=== PATIENT | female | born 1980 | race Caucasian/White ===

== ENCOUNTER 2022-07-08 21:18 | Emergency (ER) | payer MEDICARE ==
--- NOTE | 2022-07-08 21:21 | ERPHSYRPT ---
- History of Present Illness Time Seen by Provider: 07/08/22 21:21 Historian: patient, family Exam Limitations: no limitations Physician History: This is a morbidly obese 42-year-old white female who presents to the emergency department with multiple complaints but the low back pain is the reason why she presented to the emergency room this evening. She has chronic back pain but in the last couple few days it is worsened. Patient sees Dr. Cho as her pain specialist. She has no chest pain. She has no shortness of breath. She has not fallen or suffered any acute trauma to the low back. Timing/Duration: intermittent, worse (Worse in the last 2 to 3 days), other (Present for years) Activities at Onset: none Quality: aching Pain Radiation: no radiation Severity of Pain-Max: mild (To moderate) Severity of Pain-Current: mild (To moderate) Modifying Factors: Improves With: movement, walking Associated Symptoms: denies symptoms Previous symptoms: same symptoms as today Allergies/Adverse Reactions: No Known Drug Allergies Allergy (Unverified 07/08/22 21:30) Home Medications: Gabapentin 600 mg PO TID 07/08/22 [History] Travel Risk - International Travel Have you traveled outside of the country in past 3 weeks: No - Coronavirus Screening Are you exhibiting any of the following symptoms?: No Close contact with a COVID-19 positive Pt in past 14-21 Days: No - Review of Systems Constitutional: No Symptoms Eyes: No Symptoms Ears, Nose, & Throat: No Symptoms Respiratory: No Symptoms Cardiac: No Symptoms Abdominal/Gastrointestinal: No Symptoms Genitourinary Symptoms: No Symptoms Musculoskeletal: Back Pain, No Injury Skin: No Symptoms Neurological: No Symptoms Psychological: No Symptoms Endocrine: No Symptoms Hematologic/Lymphatic: No Symptoms Immunological/Allergic: No Symptoms All Other Systems: Reviewed and Negative - Past Medical History Pertinent Past Medical History: Yes - Nursing Vital Signs Nursing Vital Signs: Initial Vital Signs Temperature 97.3 F 07/08/22 21:29 Pulse Rate 111 H 07/08/22 21:29 Respiratory Rate 18 07/08/22 21:29 Blood Pressure 131/98 07/08/22 21:29 O2 Sat by Pulse Oximetry 96 07/08/22 21:29 Pain Scale Pain Intensity 10 - Physical Exam General Appearance: no apparent distress, alert, anxiety, obese Eye Exam: PERRL/EOMI, eyes nml inspection Ears, Nose, Throat Exam: normal ENT inspection, moist mucous membranes Neck Exam: normal inspection, non-tender, supple, full range of motion Respiratory Exam: airway intact, No chest tenderness, No respiratory distress Cardiovascular Exam: tachycardia Gastrointestinal/Abdomen Exam: soft, normal bowel sounds, No tenderness Pelvic Exam: not done Rectal Exam: not done Back Exam: normal inspection, normal range of motion, muscle spasm, No CVA tenderness, No vertebral tenderness (Lumbar level) Extremity Exam: normal inspection, normal range of motion, pelvis stable Neurologic Exam: alert, oriented x 3, cooperative, pleater II-XII nml as tested, normal mood/affect, nml cerebellar function, nml station & gait, sensation nml Skin Exam: normal color, warm, dry Lymphatic Exam: No adenopathy SpO2 Interpretation: normal O2 Delivery: Room Air - Course Nursing assessment & vital signs reviewed: Yes Ordered Tests: Active Orders 24 hr Category Date Time Status LUMBAR LIMITED (2 OR 3 VIEWS) Stat Exams 07/08/22 21:54 Taken CULTURE,URINE Stat Lab 07/08/22 21:57 Received UA W/RFX UR CULTURE Stat Lab 07/08/22 21:57 Completed Medication Summary Generic Name Dose Route Start Last Admin Trade Name Freq PRN Reason Stop Dose Admin Methylprednisolone Sodium 0 mg 07/08/22 22:49 Succinate 125 mg/ Sterile IM 07/08/22 22:50 Water 2 ml STAT ONE Discontinued Medications Generic Name Dose Route Start Last Admin Trade Name Freq PRN Reason Stop Dose Admin Oxycodone/Acetaminophen 2 tab 07/08/22 22:48 Oxycodone Hcl/Apap 5 Mg/325 Mg Tablet PO 07/08/22 22:49 SENT HOME W/ PATIENT STA Lab/Rad Data: Laboratory Results 07/08/22 Range/Units 21:57 Urine Color Yellow (Yellow) Urine Appearance Clear (Clear) Urine pH 6.0 (4.6-8.0) Ur Specific [place] >=1.030 A (1.005-1.030) Urine Protein Negative (Negative) Urine Glucose (UA) >=1000 A (Negative) mg/dL Urine Ketones Negative (Negative) Urine Blood Negative (Negative) Urine Nitrite Negative (Negative) Urine Bilirubin Negative (Negative) Urine Urobilinogen 0.2 (0.2) mg/dL Ur Leukocyte Esterase Negative (Negative) U Hyaline Cast (Auto) NONE SEEN (0-2) /LPF Urine Microscopic RBC 0-2 (0-5) /HPF Urine Microscopic WBC 11-20 A (0-5) /HPF Ur Epithelial Cells Moderate A (None Seen) /HPF Urine Bacteria Few A (None Seen) /HPF Urine Culture Reflexed YES (NO) - Progress Progress: unchanged, pain not gone completely Progress Note: 07/08/22 22:42 The lumbar spine x-ray was interpreted by me. There is no evidence of any acute fracture or subluxation. The patient's medical issue is 1 of low complexity. The level of complexity in the work-up performed is based on review of the patient's past medical history. Patient's primary complaint is chronic but there is acute exacerbation of her lower back pain. We also took into account reviewing the patient's medication list, the drug allergy list and history of present illness. We also took into account the findings on physical examination. Lumbar spine x-ray was performed. No laboratory studies are necessary. We did do a urinalysis as well. It appears as the urinalysis shows bacteria present as well as white cells. However I think this is a contaminated specimen there is a moderate amount of epithelial cells. The nitrite and leukocyte esterase are negative. A culture was sent and we will wait for the culture results to determine if the patient requires antibiotic therapy. We will treat her back pain at this time. Counseled pt/family regarding: lab results, diagnosis, rad results Medical Desision Making - Independent Historian Additional History obtained from: Mother - Diagnostic Testing Diagnostic test were ordered, analyzed, and reviewed by me: Yes Radiological Interpretation: Interpreted by me - Risk of complications The pt has a mod risk of morbidity or mortality based on: Need for prescription drug management - Departure Departure Disposition: Home Clinical Impression: Acute exacerbation of chronic low back pain Condition: Stable Critical Care Time: No Referrals: VESTA CHO MD [CONSULTING PHYSICIAN] - Follow up/PCP as directed Additional Instructions: Take your medication as prescribed. Call your primary care physician tomorrow, 07/09/2022 to make arrangements to be evaluated in the next 3 to 5 days. Monitor your blood sugar closely when taking the short-term steroids. Prescriptions: Prednisone 10 mg [Deltasone 10 mg] 10 mg PO TID #12 tablet
[2022-07-08 22:33] LABS: Appearance Clear (Clear); Bacteria Few /HPF (None Seen); Bilirubin Negative (Negative); Blood Negative (Negative); Epithelial Cells Moderate /HPF (None Seen); Glucose, Urine >=1000 mg/dL (Negative); Hyaline Casts NONE SEEN /LPF (0-2); Ketones Negative (Negative); Leukocyte Esterase Negative (Negative); Nitrite Negative (Negative); Protein,Urine Dip Negative (Negative); RBC 0-2 /HPF (0-5); Specific Gravity >=1.030 (1.005-1.030); Urobilinogen 0.2 mg/dL (0.2)
[2022-07-08 22:34] LABS: ADD URINE CULTURE? YES (NO)
[2022-07-08] MEDS ORDERED: PERCOCET TABLET 5/325MG PO STA (22:48)
[2022-07-08] MEDS ORDERED: solu-MEDROL 125 MG, Sterile H2O 10 ml 2 ML IM ONE ×2 (22:49)
[2022-07-08] MEDS ORDERED: solu-MEDROL ONE (23:21)
[2022-07-08] MEDS ORDERED: Sterile H2O 10 ml IJ ONE (23:21)
[2022-07-08] MEDS ORDERED: PERCOCET TABLET 5/325MG ONE (23:21)
[2022-07-08 23:33] VITALS: BP 102/85; PULSE 100; O2SAT 95
--- NOTE | 2022-07-09 08:39 | XRAY ---
Indication: Pain. No known injury. Comparison: None 3 view lumbar spine demonstrates 5 lumbar segments in normal alignment with minimal/mild multilevel thoracolumbar endplate spurring, minimal L4-S1 disc space narrowing, cholecystectomy clips, and partially visualized right intra-abdominal catheter. No other bony, articular, or soft tissue abnormalities.
== END 2022-07-08 23:39 | disposition home or self-care (01) ==
LOC: ED 21:18
DX: G89.29 Other chronic pain (principal); M54.50 Low back pain, unspecified; Z79.52 Long term (current) use of systemic steroids; Z79.899 Other long term (current) drug therapy
CPT/HCPCS: 72100; 81001; 87086; 96372; 99283; J2930; A9270-GY

== ENCOUNTER 2022-09-23 20:55 | Emergency (ER) | payer MEDICARE ==
--- NOTE | 2022-09-23 21:03 | ERPHSYRPT ---
- History of Present Illness Time Seen by Provider: 09/23/22 21:03 Source: patient Exam Limitations: no limitations Physician History: This is a morbidly obese 42-year-old white female patient who has history of chronic back pain and sees a pain specialist, Dr. Hardwick for this. She is on gabapentin. She has noticed increasing pain and swelling in her right jaw and right neck over the last month. Today, the swelling became more prominent as did the pain. Patient is a dentulous. She has had all her teeth pulled. She has had no radiation treatment to this area. She has never had pain like this before. Patient denies chest pain. Patient denies shortness of breath. Timing/Duration: gradual onset Severity: moderate ENT Location: mouth (Right jaw and right neck) Prearrival Treatment: no prearrival treatment Modifying Factors: Improves With: other (Right jaw and right neck hurt to open up her mouth wide) Associated Symptoms: facial pain/swelling (Right jaw and right neck), other (Right jaw), No swollen glands, No sore throat, No tooth pain, No voice change Allergies/Adverse Reactions: No Known Drug Allergies Allergy (Verified 09/23/22 21:23) Home Medications: ALPRAZolam 1 MG [Xanax 1 mg] 1 mg PO DAILY 09/23/22 [History] Buspirone HCl 15 mg PO BID 09/23/22 [History] Escitalopram Oxalate [Lexapro] 10 mg PO DAILY 09/23/22 [History] Quetiapine Fumarate 100 mg [Seroquel 100 MG] 150 mg PO HS 09/23/22 [History] Trazodone HCl 100 mg PO HS 09/23/22 [History] Hx Tetanus, Diphtheria Vaccination/Date Given: Yes Hx Influenza Vaccination/Date Given: Yes Hx Pneumococcal Vaccination/Date Given: Yes Travel Risk - International Travel Have you traveled outside of the country in past 3 weeks: No - Coronavirus Screening Are you exhibiting any of the following symptoms?: No Close contact with a COVID-19 positive Pt in past 14-21 Days: No - Vaccine Status Have you recieved a Covid-19 vaccination: No - Review of Systems Constitutional: No Symptoms Eyes: No Symptoms Ears, Nose, & Throat: Other (Difficult for patient to open up her mouth wide because of the pain in her jaw on the right side) Respiratory: No Symptoms Cardiac: No Symptoms Abdominal/Gastrointestinal: No Symptoms Genitourinary Symptoms: No Symptoms Musculoskeletal: Joint Pain (Right jaw pain) Skin: No Symptoms Neurological: No Symptoms Psychological: No Symptoms Endocrine: No Symptoms Hematologic/Lymphatic: No Symptoms Immunological/Allergic: No Symptoms All Other Systems: Reviewed and Negative - Past Medical History Pertinent Past Medical History: Yes Neurological History: Seizures, Stroke Respiratory History: Asthma, COPD Endocrine Medical History: Diabetes Type II GI Medical History: GERD Psycho-Social History: Depression Female Reproductive Disorders: Endometriosis, Menstrual Problems - Past Surgical History Past Surgical History: Yes Neuro Surgical History: Brain Shunt Gastrointestinal: Appendectomy, Cholecystectomy Female Surgical History: Hysterectomy Other Surgical History: correction of toes on bilateral feet - Social History Smoking Status: Current every day smoker Exposure to second hand smoke: Yes Drug Use: none Patient Lives Alone: No - Nursing Vital Signs Nursing Vital Signs: Initial Vital Signs Temperature 97.2 F 09/23/22 21:06 Pulse Rate 98 H 09/23/22 21:06 Respiratory Rate 18 09/23/22 21:06 Blood Pressure 142/110 09/23/22 21:06 O2 Sat by Pulse Oximetry 97 09/23/22 21:06 Pain Scale Pain Intensity 10 - Physical Exam General Appearance: no apparent distress, alert, anxiety Eye Exam: bilateral eye: normal inspection, PERRL, EOMI Ear Exam: bilateral ear: auricle normal, canal normal, TM normal Nasal Exam: normal inspection Throat Exam: mandibular swelling (Right side with pain upon opening of the mouth), moist mucus membranes, No dental tenderness, No voice changes Neck Exam: supple, full range of motion, trachea midline, tender lateral (Right side soft tissue neck with? Swelling present no crepitance) Cardiovascular/Respiratory Exam: chest non-tender, no respiratory distress Abdominal Exam: non-tender Neurologic Exam: alert, oriented x 3, cooperative, oil speculator II-XII nml as tested, normal mood/affect, nml cerebellar function, nml station & gait, sensation nml Skin Exam: normal color, warm, dry SpO2 Interpretation: normal O2 Delivery: Room Air - Course Nursing assessment & vital signs reviewed: Yes Ordered Tests: Active Orders 24 hr Category Date Time Status IV Insertion STAT Care 09/23/22 21:29 Active FACIAL BONES WO CONTRAST [CT] Stat Exams 09/23/22 21:25 Ordered NECK WO CONTRAST [CT] Stat Exams 09/23/22 21:25 Ordered CBC W DIFF Stat Lab 09/23/22 21:40 Completed CMP Stat Lab 09/23/22 21:40 Completed Lab/Rad Data: Laboratory Result Diagrams 09/23/22 21:40 09/23/22 21:40 Laboratory Results 09/23/22 09/23/22 Range/Units 21:40 21:40 WBC 9.5 (4.0-10.5) x10^3/uL RBC 4.40 (4.1-5.4) x10^6/uL Hgb 13.1 (12.0-16.0) g/dL Hct 39.1 (35-47) % MCV 88.9 (78-100) fL MCH 29.8 (26-32) pg MCHC 33.5 (32-36) g/dL RDW 12.4 (11.5-14.0) % Plt Count 229 (150-450) x10^3/uL MPV 9.6 (7.5-11.0) fL Gran % 57.7 (36.0-66.0) % Immature Gran % (Auto) 0.5 H (0.00-0.4) % Nucleat RBC Rel Count 0.0 (0.00-0.1) % Eos # (Auto) 0.36 (0-0.5) x10^3/uL Immature Gran # (Auto) 0.05 H (0.00-0.03) x10^3u/L Absolute Lymphs (auto) 3.13 (1.0-4.6) x10^3/uL Absolute Monos (auto) 0.43 (0.0-1.3) x10^3/uL Absolute Nucleated RBC 0.00 (0.00-0.01) x10^3u/L Lymphocytes % 33.1 (24.0-44.0) % Monocytes % 4.5 (0.0-12.0) % Eosinophils % 3.8 (0.00-5.0) % Basophils % 0.4 (0.0-0.4) % Absolute Granulocytes 5.45 (1.4-6.9) x10^3/uL Basophils # 0.04 (0-0.4) x10^3/uL Sodium 136 L (137-145) mmol/L Potassium 4.0 (3.5-5.1) mmol/L Chloride 96 L (98-107) mmol/L Carbon Dioxide 30 (22-30) mmol/L Anion Gap 13.2 (5-15) MEQ/L BUN 13 (7-17) mg/dL Creatinine 0.82 (0.52-1.04) mg/dL Estimated GFR > 60.0 ML/MIN Glucose 354 H (74-106) mg/dL Calcium 8.3 L (8.4-10.2) mg/dL Total Bilirubin 0.50 (0.2-1.3) mg/dL AST 27 (14-36) U/L ALT 30 (0-35) U/L Alkaline Phosphatase 150 H (38-126) U/L Serum Total Protein 7.5 (6.3-8.2) g/dL Albumin 4.0 (3.5-5.0) g/dL - Progress Progress: improved, pain not gone completely Progress Note: 09/23/22 22:09 ct scan of the face and soft tissue of the neck both show no acute, emergent abnormality. I reviewed the impression of the radiologist interpretation. This patient's medical issue is 1 of moderate complexity. Level complexity in the work-up performed is based on review of the patient's past medical history, review of the patient's medication list, reviewed the patient's drug allergy list, history of present illness and physical findings on examination. The work-up in this patient includes CT scan of the face and CT scan of the soft tissue of the neck. I reviewed the radiologist interpretation of the work-up. There is no acute, emergent medical issue. There is no significant findings on the lab results of the CBC, CMP. We will provide the patient with antiemetic, narcotic dose of medication and and a NSAID dose here in the emergency department followed by outpatient prescription being remotely sent for a muscle relaxant and naproxen. Counseled pt/family regarding: lab results, diagnosis, need for follow-up, rad results Medical Desision Making - Independent Historian Additional History obtained from: Family - Diagnostic Testing Diagnostic test were ordered, analyzed, and reviewed by me: Yes Radiological Interpretation: Reviewed by me, Teleradiologist Report - Risk of complications The pt has a mod risk of morbidity or mortality based on: Need for prescription drug management - Departure Departure Disposition: Home Clinical Impression: Jaw pain, Neck pain, Hyperglycemia Condition: Stable Critical Care Time: No Referrals: RANJIT NUNEZ DO [Primary Care Provider] - Follow up/PCP as directed Additional Instructions: Take your medication as prescribed. Control your blood sugar. Monitor it closely. Call your primary care provider tomorrow, 09/25/2019 3 in the morning to make arrangements for follow-up appointment for further evaluation management. Prescriptions: Naproxen 500 mg [Naprosyn 500 MG] 500 mg PO BID #10 tablet Orphenadrine Citrate 100 mg [Norflex 100 MG Tablet] 100 mg PO BID #10 tab
[2022-09-23 21:23] VITALS: TEMP 97.2; O2SAT 97
[2022-09-23 21:43] LABS: Absolute Neutrophil Ct (ANC) 5.45 x10^3/uL (1.4-6.9); BASOPHIL % 0.4 % (0.0-0.4); Basophil (Absolute #) 0.04 x10^3/uL (0-0.4); Eosinophil % 3.8 % (0.00-5.0); Eosinophil (Absolute #) 0.36 x10^3/uL (0-0.5); Hematocrit 39.1 % (35-47); Hemoglobin 13.1 g/dL (12.0-16.0); IMMATURE GRAN # 0.05 x10^3u/L (0.00-0.03); IMMATURE GRAN % 0.5 % (0.00-0.4); Lymphocyte (Absolute #) 3.13 x10^3/uL (1.0-4.6); Lymphocytes % 33.1 % (24.0-44.0); Mean Cell Volume 88.9 fL (78-100); Mean Corpuscular Hemoglobin 29.8 pg (26-32); Mean Corpuscular Hgb Concent. 33.5 g/dL (32-36); Mean Platelet Volume 9.6 fL (7.5-11.0); Monocyte (Absolute #) 0.43 x10^3/uL (0.0-1.3); Monocytes % 4.5 % (0.0-12.0); Neutrophil % 57.7 % (36.0-66.0); Platelet Count 229 x10^3/uL (150-450); Red Cell Distribution Width 12.4 % (11.5-14.0); White Blood Count 9.5 x10^3/uL (4.0-10.5)
[2022-09-23 22:06] LABS: ALKALINE PHOSPHATASE 150 U/L (38-126); ANION GAP 13.2 MEQ/L (5-15); BLOOD UREA NITROGEN 13 mg/dL (7-17); CHLORIDE 96 mmol/L (98-107); Calcium 8.3 mg/dL (8.4-10.2); Carbon Dioxide 30 mmol/L (22-30); Creatinine 1 0.82 mg/dL (0.52-1.04); EST GLOMERULAR FILTRATION RATE > 60.0 ML/MIN; Glucose 354 mg/dL (74-106); SGOT/AST 27 U/L (14-36); SGPT/ALT 30 U/L (0-35); SODIUM 136 mmol/L (137-145); Total Protein 7.5 g/dL (6.3-8.2)
[2022-09-23] MEDS ORDERED: Hydromorphone 1 mg/ml Injection IV ONE (22:14)
[2022-09-23] MEDS ORDERED: TORAdol 30 mg Injection IV ONE (22:14)
[2022-09-23] MEDS ORDERED: Zofran 4 MG/2 ML VIAL IV ONE (22:14)
[2022-09-23] MEDS ORDERED: Hydromorphone 1 mg/ml Injection ONE (22:30)
[2022-09-23] MEDS ORDERED: TORAdol 30 mg Injection ONE (22:30)
[2022-09-23] MEDS ORDERED: Zofran 4 MG/2 ML VIAL ONE (22:30)
[2022-09-23 22:51] VITALS: BP 105/76; PULSE 84; RESP 16
--- NOTE | 2022-09-24 08:45 | XRAY ---
Indication: Right jaw pain and swelling. Multiple contiguous axial images obtained through the facial bones. Sagittal and coronal reformatted images obtained. Cutaneous BB placed over region of interest. Comparison: None Patient is edentulous. Cutaneous BB is seen right mandibular area. No underlying solid/cystic soft tissue mass. No acute fracture, suspicious bony lesions, or radiopaque foreign body. Orbits including roof, [place], and floors intact. Incidental mild C5-C6 degenerative changes. TMJ bilaterally symmetric. Paranasal sinuses and nasal passages are clear. There has been bilateral maxillary sinus antrectomy and right middle turbinectomy. A few scattered subcentimeter cervical lymph nodes bilaterally, none pathologically enlarged. Incompletely visualized right ventriculoperitoneal catheter. Remaining visualized noncontrasted soft tissues including base of brain are unremarkable. Impression: C5-C6 degenerative changes. Remaining CT facial bones without contrast exam is negative.
--- NOTE | 2022-09-24 08:47 | XRAY ---
Indication: Right jaw pain and swelling. Multiple contiguous axial images obtained through the neck without contrast. Sagittal and coronal reformatted images obtained. Cutaneous BB placed over region of interest. Comparison: None Patient is edentulous. Cutaneous BB is seen right mandibular area. No underlying solid/cystic soft tissue mass. Scattered subcentimeter cervical lymph nodes bilaterally, none pathologically enlarged. Parotid and submandibular glands are bilaterally symmetric. Noncontrasted thyroid gland unremarkable. Major arteries and veins are normal in course and caliber. Supra and infraglottic airway are widely patent. Normal epiglottis. Incompletely visualized right ventriculoperitoneal catheter. Visualized osseous structures intact with incidental mild C5-C6 degenerative changes. Visualized base of brain and lung apices are unremarkable. Impression: C5-C6 degenerative changes. Remaining CT neck without contrast exam is negative.
== END 2022-09-23 22:54 | disposition home or self-care (01) ==
LOC: ED 20:55
DX: R68.84 Jaw pain (principal); M54.2 Cervicalgia; E11.65 Type 2 diabetes mellitus with hyperglycemia; Z79.899 Other long term (current) drug therapy; Z28.310 Unvaccinated for COVID-19; Z72.0 Tobacco use
CPT/HCPCS: 36415; 70486; 70490; 80053; 85025; 96374; 96375; 99284; J1170; J1885; J2405

== ENCOUNTER 2022-11-13 22:57 | Emergency (ER) | payer MEDICARE ==
[2022-11-13 23:04] VITALS: TEMP 97.7
[2022-11-13] MEDS ORDERED: Pepcid 20 MG PO ONE (23:08)
[2022-11-13] MEDS ORDERED: BENADRYL 25 MG CAPSULE PO ONE (23:10)
[2022-11-13] MEDS ORDERED: DELTASONE 20 MG PO ONE (23:12)
[2022-11-13] MEDS ORDERED: Pepcid 20 MG ONE (23:14)
[2022-11-13] MEDS ORDERED: BENADRYL 25 MG CAPSULE ONE (23:14)
[2022-11-13] MEDS ORDERED: DELTASONE 20 MG ONE (23:14)
--- NOTE | 2022-11-13 23:30 | ERPHSYRPT ---
- History of Present Illness Time Seen by Provider: 11/13/22 23:10 Source: patient Exam Limitations: no limitations Patient Subjective Stated Complaint: rash which occured about 2-3 days ago Triage Nursing Assessment: pt ambulated into ER without diff, pt's mother at bedside. Pt c/o scattered rash that she's had x2-3 days. Rash is to pt's face, bilat arms, chest and back. Rash is small pink clusters with white pustule in the middle. Pt states, "the pain has gotten worse so I came in". Pt denies any itching, describes it more as pain: stinging and aching pain. Physician History: Patient is a 42-year-old female presents to our ED with a painful pruritic rash on face chest and back. Symptoms started about 2 to 3 days ago. Patient feels itchy however it hurts to scratch. No open or draining lesions. No cellulitis. No lymphangitis. Symptoms are constant. Symptoms are moderate in intensity. No specific worsening improving factors. Patient denies history of the same. No intraoral involvement. No difficulty breathing or shortness of breath. No abdominal cramping. No obvious exposures. No new products. No new clothing. Mother at bedside. They voiced no other complaints or concerns at this time. Portions of this note were created with voice recognition technology. There may be grammatical, spelling, punctuation or sound alike errors Timing/Duration: day(s) (2 to 3 days) Severity: moderate Modifying Factors: Improves With: nothing Associated Symptoms: denies symptoms Allergies/Adverse Reactions: No Known Drug Allergies Allergy (Verified 11/13/22 23:17) Home Medications: ALPRAZolam 1 MG [Xanax 1 mg] 1 mg PO DAILY 09/23/22 [History] Buspirone HCl 15 mg PO BID 09/23/22 [History] Escitalopram Oxalate [Lexapro] 10 mg PO DAILY 09/23/22 [History] Quetiapine Fumarate 100 mg [Seroquel 100 MG] 150 mg PO HS 09/23/22 [History] Trazodone HCl 100 mg PO HS 09/23/22 [History] Hx Tetanus, Diphtheria Vaccination/Date Given: No Hx Influenza Vaccination/Date Given: Yes Hx Pneumococcal Vaccination/Date Given: No Travel Risk - International Travel Have you traveled outside of the country in past 3 weeks: No - Coronavirus Screening Are you exhibiting any of the following symptoms?: No Close contact with a COVID-19 positive Pt in past 14-21 Days: No - Vaccine Status Have you recieved a Covid-19 vaccination: No - Review of Systems Constitutional: No Symptoms, No Fever, No Chills Eyes: No Symptoms Ears, Nose, & Throat: No Symptoms Respiratory: No Symptoms, No Cough, No Dyspnea Cardiac: No Symptoms, No Chest Pain, No Edema, No Syncope Abdominal/Gastrointestinal: No Symptoms, No Abdominal Pain, No Nausea, No Vomiting, No Diarrhea Genitourinary Symptoms: No Symptoms, No Dysuria Musculoskeletal: No Symptoms, No Back Pain, No Neck Pain Skin: No Symptoms, No Rash Neurological: No Symptoms, No Dizziness, No Focal Weakness, No Sensory Changes Psychological: No Symptoms Endocrine: No Symptoms Hematologic/Lymphatic: No Symptoms Immunological/Allergic: No Symptoms All Other Systems: Reviewed and Negative - Past Medical History Pertinent Past Medical History: Yes Neurological History: Seizures, Stroke Cardiac History: Congestive Heart Failure, Hypertension Respiratory History: Asthma, Bronchitis, CHF, COPD, Sleep Apnea Endocrine Medical History: Diabetes Type II Musculoskeletal History: Arthritis GI Medical History: GERD, Gallbladder Disease Psycho-Social History: Depression Female Reproductive Disorders: Endometriosis, Menstrual Problems - Past Surgical History Past Surgical History: Yes Neuro Surgical History: Brain Shunt Respiratory: No Pertinent History Gastrointestinal: Appendectomy, Cholecystectomy Genitourinary: Other Female Surgical History: Hysterectomy Other Surgical History: correction of toes on bilateral feet, bladder sling, 3 sinus surgeries, colonoscopy, hemroidectomy - Social History Smoking Status: Current every day smoker How long have you smoked: 25 yrs Exposure to second hand smoke: No Drug Use: none Patient Lives Alone: No - Female History Hx Now: No - Nursing Vital Signs Nursing Vital Signs: Initial Vital Signs Temperature 97.7 F 11/13/22 23:01 Pulse Rate 104 H 11/13/22 23:01 Respiratory Rate 22 11/13/22 23:01 Blood Pressure 135/89 11/13/22 23:01 O2 Sat by Pulse Oximetry 97 11/13/22 23:01 Pain Scale Pain Intensity 9 - Physical Exam General Appearance: no apparent distress, alert Eye Exam: PERRL/EOMI, eyes nml inspection Ears, Nose, Throat Exam: normal ENT inspection, TMs normal, pharynx normal, moist mucous membranes Neck Exam: normal inspection, non-tender, supple, full range of motion Respiratory Exam: normal breath sounds, lungs clear, No respiratory distress Cardiovascular Exam: regular rate/rhythm, normal heart sounds, normal peripheral pulses Gastrointestinal/Abdomen Exam: soft, normal bowel sounds, No tenderness, No mass Back Exam: normal inspection, normal range of motion, No CVA tenderness, No vertebral tenderness Extremity Exam: normal inspection, normal range of motion, pelvis stable Neurologic Exam: alert, oriented x 3, cooperative, normal mood/affect, nml cerebellar function, nml station & gait, sensation nml, No motor deficits Skin Exam: normal color, warm, dry, other (Papular skin lesions associated with painful pruritus. No open or draining lesions. No superimposed cellulitis. Skin intact. All extremities neurovascular intact distally. Compartments are soft cap refill less than 2 seconds.), No rash Lymphatic Exam: No adenopathy SpO2 Interpretation: normal SpO2: 97 O2 Delivery: Room Air - Course Nursing assessment & vital signs reviewed: Yes Ordered Tests: Medication Summary Discontinued Medications Generic Name Dose Route Start Last Admin Trade Name Pabloq PRN Reason Stop Dose Admin Diphenhydramine HCl 25 mg 11/13/22 23:10 11/13/22 23:16 Diphenhydramine Hcl 25 Mg Capsule PO 11/13/22 23:11 25 mg STAT ONE Administration Diphenhydramine HCl Confirm 11/13/22 23:14 Diphenhydramine Hcl 25 Mg Capsule Administered 11/13/22 23:15 Dose 25 mg .ROUTE .STK-MED ONE Famotidine 20 mg 11/13/22 23:08 11/13/22 23:16 Famotidine 20 Mg Tablet PO 11/13/22 23:09 20 mg ONCE ONE Administration Famotidine Confirm 11/13/22 23:14 Famotidine 20 Mg Tablet Administered 11/13/22 23:15 Dose 20 mg .ROUTE .STK-MED ONE Prednisone 60 mg 11/13/22 23:12 11/13/22 23:16 Prednisone 20 Mg Tablet PO 11/13/22 23:13 60 mg STAT ONE Administration Prednisone Confirm 11/13/22 23:14 Prednisone 20 Mg Tablet Administered 11/13/22 23:15 Dose 60 mg .ROUTE .STK-MED ONE - Progress Progress: improved Progress Note: Patient reassessed. Symptoms improved. Patient is ready for discharge. Prescription forwarded to patient's pharmacy. Patient agrees to follow-up with her primary care doctor within 48 hours for evaluation. She voices no other complaints or concerns at this time. Portions of this note were created with voice recognition technology. There may be grammatical, spelling, punctuation or sound alike errors Complexity problem addressed as low acute uncomplicated No critical care time Complexity of data reviewed and analyzed is none. No specialized testing ordered. Diagnosis made based on history and physical exam. Risk of complication and risk of morbidity/mortality of patient management is moderate. Prescription for to the patient's pharmacy. Vital stable. Time spent to discharge patient approximately 15 minutes. Plan of care established for shared decision making. No social determinants of health present repeat follow-up. Portions of this note were created with voice recognition technology. There may be grammatical, spelling, punctuation or sound alike errors 11/13/22 23:39 Counseled pt/family regarding: diagnosis, need for follow-up - Departure Departure Disposition: Home Clinical Impression: Pruritic rash, Allergic reaction Condition: Stable Critical Care Time: No Referrals: RANJIT NUNEZ DO [Primary Care Provider] - Follow up/PCP as directed Additional Instructions: Discharge/Care Plan ISIDRA ESTRADA was seen on 11/13/22 in the Emergency Room. The patient was counseled regarding Diagnosis,Lab results, Imaging studies, need for follow up and when to return to the Emergency Room. Prescriptions given: Discharge Note I have spoken with the patient and/or caregivers. I have explained the patient's condition, diagnosis and treatment plan based on the information available to me at this time. I have answered the patient's and/or caregiver's questions and addressed any concerns. The patient and/or caregivers have as good understanding of the patient's diagnosis, condition and treatment plan as can be expected at this point. The vital signs have been stable. The patient's condition is stable and appropriate for discharge from the emergency department. The patient will pursue further outpatient evaluation with the primary care physician or other designated or consulting physician as outlined in the discharge instructions. The patient and/or caregivers are agreeable to this plan of care and follow-up instructions have been explained in detail. The patient and/or caregivers have received these instruction. The patient/and or caregivers are aware that any significant change in condition or worsening of symptoms should prompt an immediate return to this or the closest emergency department or call 911. Prescriptions: Prednisone 10 mg [Deltasone 10 mg] 40 mg PO DAILY 3 Days #12 tablet Famotidine 20 mg [Pepcid 20 MG] 20 mg PO BID 7 Days #14 tablet
[2022-11-14 00:03] VITALS: BP 103/81; PULSE 95; RESP 18; O2SAT 94
== END 2022-11-14 00:03 | disposition home or self-care (01) ==
LOC: ED 22:57
DX: T78.40XA Allergy, unspecified, initial encounter (principal); R21 Rash and other nonspecific skin eruption; I11.0 Hypertensive heart disease with heart failure; I50.9 Heart failure, unspecified; E11.9 Type 2 diabetes mellitus without complications; Z79.84 Long term (current) use of oral hypoglycemic drugs; Z79.899 Other long term (current) drug therapy; Z28.310 Unvaccinated for COVID-19; Z72.0 Tobacco use
CPT/HCPCS: 99282; A9270-GY

== ENCOUNTER 2022-11-15 19:00 | Emergency (ER) | payer MEDICARE ==
--- NOTE | 2022-11-15 19:13 | ERPHSYRPT ---
- History of Present Illness Time Seen by Provider: 11/15/22 19:13 Source: patient Exam Limitations: no limitations Physician History: This is a morbidly obese 42-year-old white female patient who has a headache and just is not feeling well overall. Blood sugar at home was elevated. Patient is on metformin as well as Levemir insulin. Her blood sugar levels were reading "high" at home. She did take "fast acting" insulin 3 hours prior to arrival. Patient has not been compliant with her meals having been eating at a festival in the last few days. Patient did not suffer any acute head injury. Patient does have a MACHINE O[employer] shunt in place. She does have a history of seizures, she has had a stroke in the past, CHF, COPD/asthma, sleep apnea and gastroesophageal reflux disease. Patient was seen in our emergency department on 11/13/2022 and was given steroid prescription to treat her rash. Patient denies chest pain. She denies shortness of breath. She has no abdominal pain. Timing/Duration: today Severity: mild (Moderate) Associated Symptoms: headaches Allergies/Adverse Reactions: No Known Drug Allergies Allergy (Verified 11/13/22 23:17) Home Medications: ALPRAZolam 1 MG [Xanax 1 mg] 1 mg PO DAILY 09/23/22 [History] Buspirone HCl 15 mg PO BID 09/23/22 [History] Escitalopram Oxalate [Lexapro] 10 mg PO DAILY 09/23/22 [History] Quetiapine Fumarate 100 mg [Seroquel 100 MG] 150 mg PO HS 09/23/22 [History] Trazodone HCl 100 mg PO HS 09/23/22 [History] Hx Tetanus, Diphtheria Vaccination/Date Given: No Hx Influenza Vaccination/Date Given: Yes Hx Pneumococcal Vaccination/Date Given: No Travel Risk - International Travel Have you traveled outside of the country in past 3 weeks: No - Coronavirus Screening Are you exhibiting any of the following symptoms?: No Close contact with a COVID-19 positive Pt in past 14-21 Days: No - Vaccine Status Have you recieved a Covid-19 vaccination: No - Review of Systems Constitutional: No Symptoms Eyes: No Symptoms Ears, Nose, & Throat: No Symptoms Respiratory: No Symptoms Cardiac: No Symptoms Genitourinary Symptoms: No Symptoms Musculoskeletal: Arthralgias, Myalgias Skin: No Symptoms Neurological: Headache Psychological: No Symptoms Endocrine: No Symptoms Hematologic/Lymphatic: No Symptoms Immunological/Allergic: No Symptoms All Other Systems: Reviewed and Negative - Past Medical History Pertinent Past Medical History: Yes Neurological History: Seizures, Stroke Cardiac History: Congestive Heart Failure, Hypertension Respiratory History: Asthma, Bronchitis, CHF, COPD, Sleep Apnea Endocrine Medical History: Diabetes Type II Musculoskeletal History: Arthritis GI Medical History: GERD, Gallbladder Disease Psycho-Social History: Depression Female Reproductive Disorders: Endometriosis, Menstrual Problems - Past Surgical History Past Surgical History: Yes Neuro Surgical History: Brain Shunt Respiratory: No Pertinent History Gastrointestinal: Appendectomy, Cholecystectomy Genitourinary: Other Female Surgical History: Hysterectomy Other Surgical History: correction of toes on bilateral feet, bladder sling, 3 sinus surgeries, colonoscopy, hemroidectomy - Social History Smoking Status: Current every day smoker How long have you smoked: 25 yrs Exposure to second hand smoke: No Drug Use: none Patient Lives Alone: No - Nursing Vital Signs Nursing Vital Signs: Initial Vital Signs Blood Pressure 148/105 11/15/22 19:19 Pain Scale Pain Intensity 10 - Physical Exam General Appearance: no apparent distress, alert, anxiety, obese Eye Exam: PERRL/EOMI, eyes nml inspection Ears, Nose, Throat Exam: normal ENT inspection, moist mucous membranes Neck Exam: normal inspection, non-tender, supple, full range of motion Respiratory Exam: normal breath sounds, lungs clear, airway intact, No chest tenderness, No respiratory distress Cardiovascular Exam: regular rate/rhythm, normal heart sounds, normal peripheral pulses Gastrointestinal/Abdomen Exam: soft, normal bowel sounds, tenderness Pelvic Exam: not done Rectal Exam: not done Back Exam: normal inspection, normal range of motion, No CVA tenderness, No vertebral tenderness Extremity Exam: normal inspection, normal range of motion, pelvis stable Neurologic Exam: alert, oriented x 3, cooperative, 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 tested, normal mood/affect, nml cerebellar function, nml station & gait, sensation nml Skin Exam: normal color, warm, dry Lymphatic Exam: No adenopathy SpO2 Interpretation: normal O2 Delivery: Room Air - Course Nursing assessment & vital signs reviewed: Yes Ordered Tests: Active Orders 24 hr Category Date Time Status EKG-ER Only STAT Care 11/15/22 19:31 Active IV Insertion STAT Care 11/15/22 19:31 Active Pulse Oximetry (ED) STAT Care 11/15/22 19:31 Active HEAD WITHOUT CONTRAST [CT] Stat Exams 11/15/22 19:32 Taken CBC W DIFF Stat Lab 11/15/22 19:34 Completed CMP Stat Lab 11/15/22 19:34 Completed ETHYL ALCOHOL Stat Lab 11/15/22 19:34 Completed Lactic Acid Urgent Lab 11/15/22 20:02 Completed MAGNESIUM Stat Lab 11/15/22 19:34 Completed POCT GLUCOSE Stat Lab 11/15/22 19:18 Completed UA W/RFX UR CULTURE Stat Lab 11/15/22 19:34 Completed Medication Summary Generic Name Dose Route Start Last Admin Trade Name Freq PRN Reason Stop Dose Admin Sodium Chloride 1,000 mls @ 999 mls/hr 11/15/22 20:35 11/15/22 20:55 Sodium Chloride 0.9% 1000 Ml IV 11/15/22 21:35 999 mls/hr .Q1H1M STA Administration Discontinued Medications Generic Name Dose Route Start Last Admin Trade Name Freq PRN Reason Stop Dose Admin Hydrocodone Bitart/Acetaminophen 1 tab 11/15/22 20:38 11/15/22 20:43 Hydrocodone/Apap 5/325 1 Tab Tablet PO 11/15/22 20:39 1 tab STAT ONE Administration Hydrocodone Bitart/Acetaminophen Confirm 11/15/22 20:42 Hydrocodone/Apap 5/325 1 Tab Tablet Administered 11/15/22 20:43 Dose 1 tab .ROUTE .STK-MED ONE Sodium Chloride 1,000 mls @ 999 mls/hr 11/15/22 19:31 11/15/22 20:22 Sodium Chloride 0.9% 1000 Ml IV 11/15/22 20:31 999 mls/hr .Q1H1M STA Administration Sodium Chloride Confirm 11/15/22 20:10 Sodium Chloride 0.9% 1000 Ml Administered 11/15/22 20:11 Dose 1,000 mls @ ud .ROUTE .STK-MED ONE Sodium Chloride Confirm 11/15/22 20:55 Sodium Chloride 0.9% 1000 Ml Administered 11/15/22 20:56 Dose 1,000 mls @ ud .ROUTE .STK-MED ONE Insulin Human Regular 15 unit 11/15/22 19:32 11/15/22 20:23 Insulin Regular, Human 1 Unit IV 11/15/22 19:33 15 unit STAT ONE Administration Insulin Human Regular Confirm 11/15/22 20:09 Insulin Regular, Human 1 Unit Administered 11/15/22 20:10 Dose 15 unit .ROUTE .STK-MED ONE Ondansetron HCl 4 mg 11/15/22 19:31 11/15/22 20:23 Ondansetron Hcl 4 Mg/2 Ml Vial IV 11/15/22 19:32 4 mg STAT ONE Administration Ondansetron HCl Confirm 11/15/22 20:09 Ondansetron Hcl 4 Mg/2 Ml Vial Administered 11/15/22 20:10 Dose 4 mg .ROUTE .STK-MED ONE Lab/Rad Data: Laboratory Result Diagrams 11/15/22 19:34 11/15/22 19:34 Laboratory Results 11/15/22 11/15/22 11/15/22 Range/Units 20:02 19:34 19:34 WBC 12.9 H (4.0-10.5) x10^3/uL RBC 4.08 L (4.1-5.4) x10^6/uL Hgb 12.0 (12.0-16.0) g/dL Hct 36.1 (35-47) % MCV 88.5 (78-100) fL MCH 29.4 (26-32) pg MCHC 33.2 (32-36) g/dL RDW 12.7 (11.5-14.0) % Plt Count 218 (150-450) x10^3/uL MPV 9.9 (7.5-11.0) fL Gran % 80.7 H (36.0-66.0) % Immature Gran % (Auto) 1.4 H (0.00-0.4) % Nucleat RBC Rel Count 0.0 (0.00-0.1) % Eos # (Auto) 0.01 (0-0.5) x10^3/uL Immature Gran # (Auto) 0.18 H (0.00-0.03) x10^3u/L Absolute Lymphs (auto) 1.96 (1.0-4.6) x10^3/uL Absolute Monos (auto) 0.31 (0.0-1.3) x10^3/uL Absolute Nucleated RBC 0.00 (0.00-0.01) x10^3u/L Lymphocytes % 15.2 L (24.0-44.0) % Monocytes % 2.4 (0.0-12.0) % Eosinophils % 0.1 (0.00-5.0) % Basophils % 0.2 (0.0-0.4) % Absolute Granulocytes 10.41 H (1.4-6.9) x10^3/uL Basophils # 0.03 (0-0.4) x10^3/uL Sodium 131 L (137-145) mmol/L Potassium 4.3 (3.5-5.1) mmol/L Chloride 95 L (98-107) mmol/L Carbon Dioxide 27 (22-30) mmol/L Anion Gap 14.3 (5-15) MEQ/L BUN 23 H (7-17) mg/dL Creatinine 0.79 (0.52-1.04) mg/dL Estimated GFR > 60.0 ML/MIN Glucose 499 H (74-106) mg/dL POC Glucometer (50 to 500) mg/dL Lactic Acid 2.1 H (0.4-2.0) Calcium 9.3 (8.4-10.2) mg/dL Magnesium 1.7 (1.6-2.3) mg/dL Total Bilirubin 0.40 (0.2-1.3) mg/dL AST 19 (14-36) U/L ALT 26 (0-35) U/L Alkaline Phosphatase 167 H (38-126) U/L Serum Total Protein 7.3 (6.3-8.2) g/dL Albumin 4.1 (3.5-5.0) g/dL Urine Color (Yellow) Urine Appearance (Clear) Urine pH (4.6-8.0) Ur Specific [place] (1.005-1.030) Urine Protein (Negative) Urine Glucose (UA) (Negative) mg/dL Urine Ketones (Negative) Urine Blood (Negative) Urine Nitrite (Negative) Urine Bilirubin (Negative) Urine Urobilinogen (0.2) mg/dL Ur Leukocyte Esterase (Negative) U Hyaline Cast (Auto) (0-2) /LPF Urine Microscopic RBC (0-5) /HPF Urine Microscopic WBC (0-5) /HPF Ur Epithelial Cells (None Seen) /HPF Urine Bacteria (None Seen) /HPF Urine Culture Reflexed (NO) Ethyl Alcohol < 10 (0-10) mg/dL 11/15/22 11/15/22 Range/Units 19:34 19:18 WBC (4.0-10.5) x10^3/uL RBC (4.1-5.4) x10^6/uL Hgb (12.0-16.0) g/dL Hct (35-47) % MCV (78-100) fL MCH (26-32) pg MCHC (32-36) g/dL RDW (11.5-14.0) % Plt Count (150-450) x10^3/uL MPV (7.5-11.0) fL Gran % (36.0-66.0) % Immature Gran % (Auto) (0.00-0.4) % Nucleat RBC Rel Count (0.00-0.1) % Eos # (Auto) (0-0.5) x10^3/uL Immature Gran # (Auto) (0.00-0.03) x10^3u/L Absolute Lymphs (auto) (1.0-4.6) x10^3/uL Absolute Monos (auto) (0.0-1.3) x10^3/uL Absolute Nucleated RBC (0.00-0.01) x10^3u/L Lymphocytes % (24.0-44.0) % Monocytes % (0.0-12.0) % Eosinophils % (0.00-5.0) % Basophils % (0.0-0.4) % Absolute Granulocytes (1.4-6.9) x10^3/uL Basophils # (0-0.4) x10^3/uL Sodium (137-145) mmol/L Potassium (3.5-5.1) mmol/L Chloride (98-107) mmol/L Carbon Dioxide (22-30) mmol/L Anion Gap (5-15) MEQ/L BUN (7-17) mg/dL Creatinine (0.52-1.04) mg/dL Estimated GFR ML/MIN Glucose (74-106) mg/dL POC Glucometer 539 H* (50 to 500) mg/dL Lactic Acid (0.4-2.0) Calcium (8.4-10.2) mg/dL Magnesium (1.6-2.3) mg/dL Total Bilirubin (0.2-1.3) mg/dL AST (14-36) U/L ALT (0-35) U/L Alkaline Phosphatase (38-126) U/L Serum Total Protein (6.3-8.2) g/dL Albumin (3.5-5.0) g/dL Urine Color Yellow (Yellow) Urine Appearance Clear (Clear) Urine pH 5.5 (4.6-8.0) Ur Specific [place] 1.020 (1.005-1.030) Urine Protein Negative (Negative) Urine Glucose (UA) >=1000 A (Negative) mg/dL Urine Ketones Negative (Negative) Urine Blood Negative (Negative) Urine Nitrite Negative (Negative) Urine Bilirubin Negative (Negative) Urine Urobilinogen 0.2 (0.2) mg/dL Ur Leukocyte Esterase Negative (Negative) U Hyaline Cast (Auto) NONE SEEN (0-2) /LPF Urine Microscopic RBC 0-2 (0-5) /HPF Urine Microscopic WBC 0-2 (0-5) /HPF Ur Epithelial Cells Rare (None Seen) /HPF Urine Bacteria None Seen (None Seen) /HPF Urine Culture Reflexed NO (NO) Ethyl Alcohol (0-10) mg/dL - Progress Progress: improved Progress Note: 11/15/22 19:30 This patient's medical issue is 1 of moderate complexity the level of complexity and work-up performed is based on review of the patient's past medical history, review of the patient's medication list, review the patient's drug allergy lis t, history present illness and physical findings on examination. Work-up includes placement of intravenous line, infusion normal saline solution, infusion of regular insulin, CBC, CMP, urinalysis. 11/15/22 21:17 CT scan of the head without contrast shows right [employer] shunt in the right lateral ventricle. 2 remote lacunar infarct left basal ganglia. No acute findings. There were no comparison films available. This study was interpreted by the radiologist and I reviewed the impression Counseled pt/family regarding: lab results, diagnosis Medical Desision Making - Independent Historian Additional History obtained from: Mother - Diagnostic Testing Diagnostic test were ordered, analyzed, and reviewed by me: Yes Radiological Interpretation: Reviewed by me, Teleradiologist Report - Risk of complications Low Risk: Low risk of morbidity from additional dx testing or treatment - Departure Departure Disposition: Home Clinical Impression: Hyperglycemia due to diabetes mellitus, Headache Condition: Stable Critical Care Time: No Referrals: RANJIT NUNEZ DO [Primary Care Provider] - Follow up/PCP as directed Additional Instructions: Eat a diabetic diet. Monitor your blood sugar closely. Stop your steroid use. Take your medications as prescribed. Follow-up with your primary care provider on 11/18/2022, for further evaluation and management.
[2022-11-15] MEDS ORDERED: Sodium Chloride 0.9% 1000 ML 1,000 ML IV STA ×2 (19:31→20:35)
[2022-11-15] MEDS ORDERED: Zofran 4 MG/2 ML VIAL IV ONE (19:31)
[2022-11-15] MEDS ORDERED: HUMULIN R IV ONE (19:32)
[2022-11-15 19:33] VITALS: TEMP 96.3
[2022-11-15 20:03] LABS: Absolute Neutrophil Ct (ANC) 10.41 x10^3/uL (1.4-6.9); BASOPHIL % 0.2 % (0.0-0.4); Basophil (Absolute #) 0.03 x10^3/uL (0-0.4); Eosinophil % 0.1 % (0.00-5.0); Eosinophil (Absolute #) 0.01 x10^3/uL (0-0.5); Hematocrit 36.1 % (35-47); IMMATURE GRAN # 0.18 x10^3u/L (0.00-0.03); IMMATURE GRAN % 1.4 % (0.00-0.4); Lymphocyte (Absolute #) 1.96 x10^3/uL (1.0-4.6); Lymphocytes % 15.2 % (24.0-44.0); Mean Cell Volume 88.5 fL (78-100); Mean Corpuscular Hemoglobin 29.4 pg (26-32); Mean Corpuscular Hgb Concent. 33.2 g/dL (32-36); Mean Platelet Volume 9.9 fL (7.5-11.0); Monocyte (Absolute #) 0.31 x10^3/uL (0.0-1.3); Monocytes % 2.4 % (0.0-12.0); Neutrophil % 80.7 % (36.0-66.0); Platelet Count 218 x10^3/uL (150-450); Red Blood Count 4.08 x10^6/uL (4.1-5.4); Red Cell Distribution Width 12.7 % (11.5-14.0); White Blood Count 12.9 x10^3/uL (4.0-10.5)
[2022-11-15] MEDS ORDERED: Zofran 4 MG/2 ML VIAL ONE (20:09)
[2022-11-15] MEDS ORDERED: HUMULIN R ONE (20:09)
[2022-11-15] MEDS ORDERED: Sodium Chloride 0.9% 1000 ML 1,000 ML ONE ×2 (20:10→20:55)
[2022-11-15 20:13] LABS: Appearance Clear (Clear); Bacteria None Seen /HPF (None Seen); Bilirubin Negative (Negative); Blood Negative (Negative); Epithelial Cells Rare /HPF (None Seen); Glucose, Urine >=1000 mg/dL (Negative); Hyaline Casts NONE SEEN /LPF (0-2); Ketones Negative (Negative); Leukocyte Esterase Negative (Negative); Nitrite Negative (Negative); Ph 5.5 (4.6-8.0); Protein,Urine Dip Negative (Negative); RBC 0-2 /HPF (0-5); Urobilinogen 0.2 mg/dL (0.2); WBC 0-2 /HPF (0-5)
[2022-11-15 20:21] LABS: ADD URINE CULTURE? NO (NO)
[2022-11-15 20:28] LABS: ALBUMIN 4.1 g/dL (3.5-5.0); ALKALINE PHOSPHATASE 167 U/L (38-126); ANION GAP 14.3 MEQ/L (5-15); BLOOD UREA NITROGEN 23 mg/dL (7-17); CHLORIDE 95 mmol/L (98-107); Calcium 9.3 mg/dL (8.4-10.2); Carbon Dioxide 27 mmol/L (22-30); Creatinine 1 0.79 mg/dL (0.52-1.04); EST GLOMERULAR FILTRATION RATE > 60.0 ML/MIN; ETHYL ALCOHOL < 10 mg/dL (0-10); MAGNESIUM 1.7 mg/dL (1.6-2.3); Potassium 4.3 mmol/L (3.5-5.1); SGOT/AST 19 U/L (14-36); SGPT/ALT 26 U/L (0-35); SODIUM 131 mmol/L (137-145); Total Protein 7.3 g/dL (6.3-8.2)
[2022-11-15 20:33] LABS: Glucose 499 mg/dL (74-106)
[2022-11-15] MEDS ORDERED: NORCO 5/325 MG PO ONE (20:38)
[2022-11-15] MEDS ORDERED: NORCO 5/325 MG ONE (20:42)
[2022-11-15 22:20] VITALS: BP 117/78; PULSE 76; RESP 16; O2SAT 96
--- NOTE | 2022-11-16 05:56 | XRAY ---
Indication: Headache Multiple contiguous axial images obtained through the head without contrast. Comparison: None Right ventricular shunt catheter in situ with tip in the right mid lateral ventricle. No acute intracranial hemorrhage, abnormal extra-axial fluid collection, or mass effect. Fourth ventricle is midline without hydrocephalus. Howell-white matter differentiation preserved. Bony calvarium intact. Visualized paranasal sinuses and mastoid air cells are clear. Impression: No acute intracranial abnormalities.
== END 2022-11-15 22:18 | disposition home or self-care (01) ==
LOC: ED 19:00
DX: E11.65 Type 2 diabetes mellitus with hyperglycemia (principal); R51.9 Headache, unspecified; I11.0 Hypertensive heart disease with heart failure; I50.9 Heart failure, unspecified; Z79.84 Long term (current) use of oral hypoglycemic drugs; Z79.4 Long term (current) use of insulin; Z79.899 Other long term (current) drug therapy; Z28.310 Unvaccinated for COVID-19; Z72.0 Tobacco use
CPT/HCPCS: 36000; 36415; 70450; 80053; 81001; 82077; 82947; 83605; 83735; 85025; 93005; 94760; 96360; 96361; 96374; 96375; 99284; J1815; J2405; A9270-GY

== ENCOUNTER 2023-01-12 16:54 | Emergency (ER) | payer MEDICARE ==
[2023-01-12 17:38] VITALS: TEMP 98.4
[2023-01-12] MEDS ORDERED: MORPHINE SULFATE 4 MG INJ IV ONE (17:44)
[2023-01-12] MEDS ORDERED: TYLENOL 325 MG PO ONE (17:44)
[2023-01-12] MEDS ORDERED: BENADRYL 50 MG/ML IV ONE (17:44)
[2023-01-12] MEDS ORDERED: Reglan 10 MG/2 ML IV ONE (17:44)
[2023-01-12] MEDS ORDERED: Sodium Chloride 0.9% 1000 ML 1,000 ML IV STA (17:44)
[2023-01-12] MEDS ORDERED: MORPHINE SULFATE 4 MG INJ ONE (18:19)
[2023-01-12] MEDS ORDERED: TYLENOL 325 MG ONE (18:19)
[2023-01-12] MEDS ORDERED: Reglan 10 MG/2 ML ONE (18:19)
[2023-01-12] MEDS ORDERED: Sodium Chloride 0.9% 1000 ML 1,000 ML ONE (18:19)
[2023-01-12] MEDS ORDERED: BENADRYL 50 MG/ML ONE (18:19)
--- NOTE | 2023-01-12 18:26 | XRAY ---
CLINICAL HISTORY:HEADACHE COMPARISON:None. TECHNIQUE:An axial non-contrast CT scan of the brain was performed from the skull base to the high parietal region. CTDI 53.92 mGy, DLP 1044.86 mGycm. FINDINGS: No acute intracranial abnormality is present. Shunt noted in place, with distal tip in the right lateral ventricle. No evidence of acute cortical infarction, hemorrhage, mass, or mass effect. No focal parenchymal abnormalities are demonstrated. Normal size and configuration of the cerebral ventricles. No abnormal extra-axial fluid collections are present. The posterior fossa is unremarkable. The skull base and calvarium are intact. The included portions of the paranasal sinuses and mastoid air cells are clear. IMPRESSION: No acute intracranial abnormality is present. Shunt noted in place, with distal tip in the right lateral ventricle. Electronically Signed by: Jan Webb MD. (01/12/2023 17:25:29 ENZYME CHEMIST)
[2023-01-12] MEDS ORDERED: TORAdol 30 mg Injection IV ONE (18:42)
--- NOTE | 2023-01-12 19:25 | ERPHSYRPT ---
- History of Present Illness Time Seen by Provider: 01/12/23 17:02 Source: patient Exam Limitations: no limitations Patient Subjective Stated Complaint: C/O Headache for 3 days. States it started on the right side of her head and it's now her entire head. Denies any injury. States its a migraine. Triage Nursing Assessment: Patient brought back to ER in a W/C. She is anxious and tearful. Alert and oriented. ROSADO WNL. Skin tone normal. NO SOB. Non- productive cough present. Accucheck per ER glucometer 224 at 5:29pm. 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 Patient reports having poorly controlled migraine and not taking anything but Tylenol/ibuprofen as needed. Patient reports moderate to severe sharp throbbing headache all over without associated nausea vomiting. No difficulty movements of neck. No fever or chills reported. Reports headache similar to her previous episodes but is not getting better with [id number] medication. Last dose of Tylenol/ibuprofen was yesterday. Patient denies any numbness tingling or weakness. No visual disturbance. No difficulty speech. Denies any known sick contact. Allergies/Adverse Reactions: No Known Drug Allergies Allergy (Verified 01/12/23 17:23) Home Medications: ALPRAZolam 1 MG [Xanax 1 mg] 1 mg PO DAILY 09/23/22 [History] Buspirone HCl 15 mg PO BID 09/23/22 [History] Escitalopram Oxalate [Lexapro] 10 mg PO DAILY 09/23/22 [History] Quetiapine Fumarate 100 mg [Seroquel 100 MG] 150 mg PO HS 09/23/22 [History] Trazodone HCl 100 mg PO HS 09/23/22 [History] Gabapentin 600 mg PO TID 11/15/22 [History] Insulin Detemir [Levemir Flexpen] 58 units SQ DAILY 11/15/22 [History] Hx Tetanus, Diphtheria Vaccination/Date Given: Yes Hx Influenza Vaccination/Date Given: No (not yet this season) Hx Pneumococcal Vaccination/Date Given: No Immunizations Up to Date: Yes Travel Risk - International Travel Have you traveled outside of the country in past 3 weeks: No - Coronavirus Screening Are you exhibiting any of the following symptoms?: Yes Symptoms: Headaches/Body Aches/Fatigue Close contact with a COVID-19 positive Pt in past 14-21 Days: No - Vaccine Status Have you recieved a Covid-19 vaccination: No - Review of Systems Constitutional: No Symptoms Eyes: No Symptoms Ears, Nose, & Throat: No Symptoms Respiratory: No Symptoms Cardiac: No Symptoms Abdominal/Gastrointestinal: No Symptoms Musculoskeletal: No Symptoms Skin: No Symptoms Neurological: Headache, No Dizziness, No Sensory Changes, No Speech Changes Psychological: Anxiety, Depression Endocrine: No Symptoms Hematologic/Lymphatic: No Symptoms - Past Medical History Pertinent Past Medical History: Yes Neurological History: Migraines, Seizures, Stroke Cardiac History: Congestive Heart Failure, Hypertension Respiratory History: Asthma, Bronchitis, CHF, COPD, Sleep Apnea Endocrine Medical History: Diabetes Type II Musculoskeletal History: Arthritis GI Medical History: GERD, Gallbladder Disease Psycho-Social History: Depression Female Reproductive Disorders: Endometriosis, Menstrual Problems - Past Surgical History Past Surgical History: Yes Neuro Surgical History: Brain Shunt Respiratory: No Pertinent History Gastrointestinal: Appendectomy, Cholecystectomy Genitourinary: Other Female Surgical History: Hysterectomy Other Surgical History: correction of toes on bilateral feet, bladder sling, 3 sinus surgeries, colonoscopy, hemroidectomy, RPG PROGRAMMER ANALYST shunt in head - Social History Smoking Status: Current every day smoker How long have you smoked: 25 yrs Exposure to second hand smoke: No Drug Use: none Patient Lives Alone: No - Female History Hx Last Menstrual Period: No longer has them Hx Now: No (hysterectomy) - Nursing Vital Signs Nursing Vital Signs: Initial Vital Signs Temperature 98.4 F 01/12/23 17:24 Pulse Rate 110 H 01/12/23 17:24 Respiratory Rate 19 01/12/23 17:24 Blood Pressure 140/104 01/12/23 17:24 O2 Sat by Pulse Oximetry 96 01/12/23 17:24 Pain Scale Pain Intensity 10 - Physical Exam General Appearance: no apparent distress, alert, anxiety Eye Exam: PERRL/EOMI Ears, Nose, Throat Exam: normal ENT inspection, TMs normal, pharynx normal, moist mucous membranes Neck Exam: normal inspection, non-tender, supple, full range of motion Respiratory Exam: normal breath sounds, lungs clear Cardiovascular Exam: regular rate/rhythm, normal heart sounds Gastrointestinal/Abdominal Exam: soft, normal bowel sounds, No tenderness Extremity Exam: normal inspection, normal range of motion Mental Status Exam: alert, oriented x 3, cooperative umbrella cutter Exam: normal hearing, normal speech, PERRL Coordination/Gait Exam: normal finger to nose, normal cerebellar function Motor/Sensory Exam: no motor deficit, no sensory deficit, no pronator drift, negative Babinski's sign DTR Exam: bicep (R): 2+, bicep (L): 2+, knee (R): 2+, knee (L): 2+ Skin Exam: normal color SpO2 Interpretation: normal SpO2: 94 O2 Delivery: Room Air Ordered Tests: Active Orders 24 hr Category Date Time Status IV Insertion STAT Care 01/12/23 17:44 Active HEAD WITHOUT CONTRAST [CT] Stat Exams 01/12/23 17:44 Completed POCT GLUCOSE Stat Lab 01/12/23 17:29 Completed Medication Summary Discontinued Medications Generic Name Dose Route Start Last Admin Trade Name Freq PRN Reason Stop Dose Admin Acetaminophen 975 mg 01/12/23 17:44 01/12/23 18:20 Acetaminophen 325 Mg Tablet PO 01/12/23 17:45 975 mg STAT ONE Administration Acetaminophen Confirm 01/12/23 18:19 Acetaminophen 325 Mg Tablet Administered 01/12/23 18:20 Dose 975 mg .ROUTE .STK-MED ONE Diphenhydramine HCl 25 mg 01/12/23 17:44 01/12/23 18:22 Diphenhydramine Hcl 50 Mg/Ml Vial IV 01/12/23 17:45 25 mg STAT ONE Administration Diphenhydramine HCl Confirm 01/12/23 18:19 Diphenhydramine Hcl 50 Mg/Ml Vial Administered 01/12/23 18:20 Dose 50 mg .ROUTE .STK-MED ONE Sodium Chloride 1,000 mls @ 999 mls/hr 01/12/23 17:44 01/12/23 18:21 Sodium Chloride 0.9% 1000 Ml IV 01/12/23 18:44 999 mls/hr .Q1H1M STA Administration Sodium Chloride Confirm 01/12/23 18:19 Sodium Chloride 0.9% 1000 Ml Administered 01/12/23 18:20 Dose 1,000 mls @ ud .ROUTE .STK-MED ONE Ketorolac Tromethamine 30 mg 01/12/23 18:42 Ketorolac Tromethamine 30 Mg/Ml Inj IV 01/12/23 18:43 STAT ONE Metoclopramide HCl 10 mg 01/12/23 17:44 01/12/23 18:21 Metoclopramide Hcl 10 Mg/2 Ml Vial IV 01/12/23 17:45 10 mg STAT ONE Administration Metoclopramide HCl Confirm 01/12/23 18:19 Metoclopramide Hcl 10 Mg/2 Ml Vial Administered 01/12/23 18:20 Dose 10 mg .ROUTE .STK-MED ONE Morphine Sulfate 4 mg 01/12/23 17:44 01/12/23 18:22 Morphine Sulfate 4 Mg/Ml Injection IV 01/12/23 17:45 4 mg STAT ONE Administration Morphine Sulfate Confirm 01/12/23 18:19 Morphine Sulfate 4 Mg/Ml Injection Administered 01/12/23 18:20 Dose 4 mg .ROUTE .STK-MED ONE Lab/Rad Data: Laboratory Results 01/12/23 Range/Units 17:29 POC Glucometer 224 H (74 to 106) mg/dL - Progress Progress: improved, re-examined Air Movement: good Progress Note: 01/12/23 19:22 42 years old is evaluated for migraine. Patient has a history of RPG PROGRAMMER ANALYST shunt placement, anxiety depression and poorly controlled migraines. This has been going on for last 3 days. Patient has nonfocal neuro exam throughout stay in the ER. She is given fluid bolus along with morphine Benadryl and Reglan, on reevaluation she is resting comfortably. Patient woke up and her headache is improved and wants to go home. I have obtained CT head which showed RPG PROGRAMMER ANALYST shunt in place and no acute intracranial findings. He has no signs of meningismus. Stable vitals. I have recommended outpatient neurology follow-up to be placed on prophylactic migraine medication and also follow-up with primary care. Discussed signs symptoms of worsening needing return to ER which she seems understanding. Stable for discharge. Blood Culture(s) Obtained: No Antibiotics given: No Counseled pt/family regarding: lab results, diagnosis, need for follow-up, rad results Medical Desision Making - Diagnostic Testing Diagnostic test were ordered, analyzed, and reviewed by me: Yes Radiological Interpretation: Reviewed by me, Teleradiologist Report - Departure Departure Disposition: Home Clinical Impression: Migraine Qualifiers: Migraine type: unspecified Status migrainosus presence: without status migrainosus Intractability: not intractable Qualified Code(s): G43.909 - Migraine, unspecified, not intractable, without status migrainosus Condition: Stable Referrals: RANJIT NUNEZ DO [Primary Care Provider] - Follow up with PCP 1 day Instructions: Headache, Adult (DC) Additional Instructions: Take Tylenol/ibuprofen as needed for headache. Follow-up with primary care for reevaluation and may need to be placed on prophylactic medications for migraine and also may need referral for further evaluation of migraine to neurology. Return to ER for intractable headache, numbness tingling focal weakness, visual disturbance etc.
[2023-01-12 19:42] VITALS: BP 99/68; PULSE 64; RESP 15; O2SAT 96
== END 2023-01-12 19:43 | disposition home or self-care (01) ==
LOC: ED 16:54
DX: G43.909 Migraine, unspecified, not intractable, without status migrainosus (principal); E11.9 Type 2 diabetes mellitus without complications; I11.0 Hypertensive heart disease with heart failure; I50.9 Heart failure, unspecified; Z79.4 Long term (current) use of insulin; Z79.899 Other long term (current) drug therapy; Z28.310 Unvaccinated for COVID-19; Z72.0 Tobacco use
CPT/HCPCS: 36000; 70450; 82947; 96360; 96374; 96375; 99284; J1200; J2270; A9270-GY

== ENCOUNTER 2023-04-15 21:21 | Emergency (ER) | payer MEDICARE ==
[2023-04-15 22:03] VITALS: TEMP 99
--- NOTE | 2023-04-15 22:22 | ERPHSYRPT ---
- History of Present Illness Time Seen by Provider: 04/15/23 22:00 Source: patient Exam Limitations: no limitations Patient Subjective Stated Complaint: pt states she has been having pain and pressure in her head radiating down her neck. states she has a vp global marketing [employer] shunt and is worried about that. Triage Nursing Assessment: pt alert and oriented, answers questions approp. pt ambualtes into room with steady gait noted. respriations nonlabored with lungs cta. skin warm and dry. pupils equal and reactive. Physician History: Patient is a 43-year-old female with a history of a ELECTROMEDICAL SERVICE ENGINEER shunt in 2011 placed secondary to hydrocephalus presents to our ED for evaluation of pressure in her head and her neck. Patient concerned that her shunt may be obstructed. No trauma no fever. No photophobia no meningeal signs. Symptoms are moderate in intensity. No specific worsening or improving factors. Patient voices no other complaints or concerns at this time. Portions of this note were created with voice recognition technology. There may be grammatical, spelling, punctuation or sound alike errors Timing/Duration: today Severity: moderate Modifying Factors: Improves With: nothing Associated Symptoms: denies symptoms Allergies/Adverse Reactions: No Known Drug Allergies Allergy (Verified 04/15/23 22:03) Home Medications: ALPRAZolam 1 MG [Xanax 1 mg] 1 mg PO DAILY 09/23/22 [History] Buspirone HCl 15 mg PO BID 09/23/22 [History] Escitalopram Oxalate [Lexapro] 10 mg PO DAILY 09/23/22 [History] Quetiapine Fumarate 100 mg [Seroquel 100 MG] 150 mg PO HS 09/23/22 [History] Trazodone HCl 100 mg PO HS 09/23/22 [History] Gabapentin 600 mg PO TID 11/15/22 [History] Insulin Detemir [Levemir Flexpen] 58 units SQ DAILY 11/15/22 [History] Hx Tetanus, Diphtheria Vaccination/Date Given: Yes Hx Influenza Vaccination/Date Given: Yes Hx Pneumococcal Vaccination/Date Given: No Immunizations Up to Date: Yes Travel Risk - International Travel Have you traveled outside of the country in past 3 weeks: No - Coronavirus Screening Are you exhibiting any of the following symptoms?: No Close contact with a COVID-19 positive Pt in past 14-21 Days: No - Vaccine Status Have you recieved a Covid-19 vaccination: No - Review of Systems Constitutional: No Symptoms, No Fever, No Chills Eyes: No Symptoms Ears, Nose, & Throat: No Symptoms Respiratory: No Symptoms, No Cough, No Dyspnea Cardiac: No Symptoms, No Chest Pain, No Edema, No Syncope Abdominal/Gastrointestinal: No Symptoms, No Abdominal Pain, No Nausea, No Vomiting, No Diarrhea Genitourinary Symptoms: No Symptoms, No Dysuria Musculoskeletal: No Symptoms, No Back Pain, No Neck Pain Skin: No Symptoms, No Rash Neurological: No Symptoms, No Dizziness, No Focal Weakness, No Sensory Changes Psychological: No Symptoms Endocrine: No Symptoms Hematologic/Lymphatic: No Symptoms Immunological/Allergic: No Symptoms All Other Systems: Reviewed and Negative - Past Medical History Pertinent Past Medical History: Yes Neurological History: Migraines, Seizures, Stroke Cardiac History: Congestive Heart Failure, Hypertension Respiratory History: Asthma, Bronchitis, CHF, COPD, Sleep Apnea Endocrine Medical History: Diabetes Type II Musculoskeletal History: Arthritis GI Medical History: GERD, Gallbladder Disease Psycho-Social History: Depression Female Reproductive Disorders: Endometriosis, Menstrual Problems - Past Surgical History Past Surgical History: Yes Neuro Surgical History: Brain Shunt Respiratory: No Pertinent History Gastrointestinal: Appendectomy, Cholecystectomy Genitourinary: Other Female Surgical History: Hysterectomy Other Surgical History: correction of toes on bilateral feet, bladder sling, 3 sinus surgeries, colonoscopy, hemroidectomy, ELECTROMEDICAL SERVICE ENGINEER shunt in head - Social History Smoking Status: Current every day smoker How long have you smoked: 25 yrs Exposure to second hand smoke: No Drug Use: none Patient Lives Alone: No - Female History Hx Last Menstrual Period: hyster Hx Now: No - Nursing Vital Signs Nursing Vital Signs: Initial Vital Signs Temperature 99.0 F 04/15/23 21:51 Pulse Rate 96 H 04/15/23 21:51 Respiratory Rate 16 04/15/23 21:51 Blood Pressure 119/88 04/15/23 21:51 O2 Sat by Pulse Oximetry 99 04/15/23 21:51 Pain Scale Pain Intensity 10 - Physical Exam General Appearance: no apparent distress, alert Eye Exam: PERRL/EOMI, eyes nml inspection Ears, Nose, Throat Exam: normal ENT inspection, TMs normal, pharynx normal, moist mucous membranes Neck Exam: normal inspection, non-tender, supple, full range of motion Respiratory Exam: normal breath sounds, lungs clear, airway intact, No respiratory distress Cardiovascular Exam: regular rate/rhythm, normal heart sounds, normal peripheral pulses Gastrointestinal/Abdomen Exam: soft, normal bowel sounds, No tenderness, No mass Back Exam: normal inspection, normal range of motion, No CVA tenderness, No vertebral tenderness Extremity Exam: normal inspection, normal range of motion, pelvis stable Neurologic Exam: alert, oriented x 3, cooperative, normal mood/affect, nml cerebellar function, nml station & gait, sensation nml, No motor deficits Skin Exam: normal color, warm, dry, No rash Lymphatic Exam: No adenopathy SpO2 Interpretation: normal SpO2: 99 O2 Delivery: Room Air - Course Nursing assessment & vital signs reviewed: Yes - CT Exams Head CT Interpretation: Tele-radiologist Report (Follow-up study show stationary course with no hydrocephalus intra or extra axial hematomas or parenchymal te rritorial hypodense areas suggestive of acute ischemic insult.) Ordered Tests: Active Orders 24 hr Category Date Time Status ABDOMEN 2 VIEW Stat Exams 04/15/23 22:26 Taken CERVICAL SPINE (2 OR 3 VIEW) Stat Exams 04/15/23 22:26 Taken CHEST 2 VIEWS (PA AND LAT) Stat Exams 04/15/23 22:26 Taken HEAD WITHOUT CONTRAST [CT] Stat Exams 04/15/23 22:03 Taken SKULL LIMITED (LESS THAN 4 V) Stat Exams 04/15/23 22:26 Taken BLOOD CULTURE Stat Lab 04/15/23 22:46 Ordered CBC W DIFF Stat Lab 04/15/23 22:46 Completed CMP Stat Lab 04/15/23 22:46 Completed Medication Summary Generic Name Dose Route Start Last Admin Trade Name [place] PRN Reason Stop Dose Admin Ketorolac Tromethamine 30 mg 04/16/23 02:48 Ketorolac Tromethamine 30 Mg/Ml Inj IM 04/16/23 02:49 STAT ONE Lab/Rad Data: Laboratory Result Diagrams 04/15/23 22:46 04/15/23 22:46 Laboratory Results 04/15/23 04/15/23 Range/Units 22:46 22:46 WBC 9.0 (4.0-10.5) x10^3/uL RBC 4.31 (4.1-5.4) x10^6/uL Hgb 12.5 (12.0-16.0) g/dL Hct 37.7 (35-47) % MCV 87.5 (78-100) fL MCH 29.0 (26-32) pg MCHC 33.2 (32-36) g/dL RDW 12.6 (11.5-14.0) % Plt Count 191 (150-450) x10^3/uL MPV 9.6 (7.5-11.0) fL Gran % 52.0 (36.0-66.0) % Immature Gran % (Auto) 0.6 H (0.00-0.4) % Nucleat RBC Rel Count 0.0 (0.00-0.1) % Eos # (Auto) 0.59 H (0-0.5) x10^3/uL Immature Gran # (Auto) 0.05 H (0.00-0.03) x10^3u/L Absolute Lymphs (auto) 3.12 (1.0-4.6) x10^3/uL Absolute Monos (auto) 0.53 (0.0-1.3) x10^3/uL Absolute Nucleated RBC 0.00 (0.00-0.01) x10^3u/L Lymphocytes % 34.6 (24.0-44.0) % Monocytes % 5.9 (0.0-12.0) % Eosinophils % 6.5 H (0.00-5.0) % Basophils % 0.4 (0.0-0.4) % Absolute Granulocytes 4.68 (1.4-6.9) x10^3/uL Basophils # 0.04 (0-0.4) x10^3/uL Sodium 136 L (137-145) mmol/L Potassium 4.1 (3.5-5.1) mmol/L Chloride 98 (98-107) mmol/L Carbon Dioxide 33 H (22-30) mmol/L Anion Gap 8.3 (5-15) MEQ/L BUN 14 (7-17) mg/dL Creatinine 1.30 H (0.52-1.04) mg/dL Estimated GFR 52.0 ML/MIN Glucose 331 H (74-106) mg/dL Calcium 9.2 (8.4-10.2) mg/dL Total Bilirubin 0.50 (0.2-1.3) mg/dL AST 49 H (14-36) U/L ALT 65 H (0-35) U/L Alkaline Phosphatase 179 H (38-126) U/L Serum Total Protein 7.2 (6.3-8.2) g/dL Albumin 4.0 (3.5-5.0) g/dL - Progress Progress: improved Progress Note: Send x-ray reveals satisfactory position of the right ELECTROMEDICAL SERVICE ENGINEER shunt with its proximal tip projecting over the skull to the right of midline. Abdominal part of ELECTROMEDICAL SERVICE ENGINEER shunt shows coiling but no kinking noted. Tip that is noted projecting over ascending colon. Normal bending of the shunt in the neck above the clavicle. The proximal end of the ELECTROMEDICAL SERVICE ENGINEER shunt is projecting over the skull on the right side distally traversing in the subcutaneous soft tissues along the right lateral neck Case discussed with Dr. Milton Ladd neurosurgeon at [facility]. We discussed the results. Patient is sleeping no pain. Dr. Ladd states that they will follow-up with our patient. However patient to call the clinic in the morning to establish a follow-up visit as well. Telephone number is area code [phone]. I spoke to Dr. Ladd at 2:44 AM. Patient reassessed. She is sleeping she feels well. Vital stable. No active pain. Patient advised of recommendations per neurosurgeon. Patient agrees to follow-up as discussed. Patient voices no other complaints or concerns at this time. Portions of this note were created with voice recognition technology. There may be grammatical, spelling, punctuation or sound alike errors Complexity problem addressed is moderate acute complicated No critical care time Complexity of data reviewed and analyzed is extensive. Test ordered test reviewed results analyzed and correlated clinically with history and physical exam. Risk of complication and or risk of morbidity/mortality of patient management is moderate Vital stable. Time spent to discharge patient is approximately 30 minutes. Plan of care established for shared decision making. No social determinants of health present impede follow-up. Portions of this note were created with voice recognition technology. There may be grammatical, spelling, punctuation or sound alike errors 04/16/23 02:52 Counseled pt/family regarding: lab results, diagnosis, need for follow-up, rad results - Departure Departure Disposition: Home Clinical Impression: Headache Condition: Stable Critical Care Time: No Referrals: NUNEZ,RANJIT M., DO [NON-STAFF PHY W/O PRIVILEGES] - Follow up/PCP as directed Additional Instructions: Please contact Dr. Milton Ladd neurosurgery at [phone] for follow-up appointment. These call in the morning for a follow-up appointment in 48 hours. Discharge/Care Plan ISIDRA ESTRADA was seen on 04/16/23 in the Emergency Room. The patient was co unseled regarding Diagnosis,Lab results, Imaging studies, need for follow up and when to return to the Emergency Room. Prescriptions given: Discharge Note I have spoken with the patient and/or caregivers. I have explained the patient's condition, diagnosis and treatment plan based on the information available to me at this time. I have answered the patient's and/or caregiver's questions and addressed any concerns. The patient and/or caregivers have as good understanding of the patient's diagnosis, condition and treatment plan as can be expected at this point. The vital signs have been stable. The patient's condition is stable and appropriate for discharge from the emergency department. The patient will pursue further outpatient evaluation with the primary care physician or other designated or consulting physician as outlined in the discharge instructions. The patient and/or caregivers are agreeable to this plan of care and follow-up instructions have been explained in detail. The patient and/or caregivers have received these instruction. The patient/and or caregivers are aware that any significant change in condition or worsening of symptoms should prompt an immediate return to this or the closest emergency department or call 911.
[2023-04-15 22:49] LABS: Absolute Neutrophil Ct (ANC) 4.68 x10^3/uL (1.4-6.9); BASOPHIL % 0.4 % (0.0-0.4); Basophil (Absolute #) 0.04 x10^3/uL (0-0.4); Eosinophil % 6.5 % (0.00-5.0); Eosinophil (Absolute #) 0.59 x10^3/uL (0-0.5); Hematocrit 37.7 % (35-47); Hemoglobin 12.5 g/dL (12.0-16.0); IMMATURE GRAN # 0.05 x10^3u/L (0.00-0.03); IMMATURE GRAN % 0.6 % (0.00-0.4); Lymphocyte (Absolute #) 3.12 x10^3/uL (1.0-4.6); Lymphocytes % 34.6 % (24.0-44.0); Mean Cell Volume 87.5 fL (78-100); Mean Corpuscular Hgb Concent. 33.2 g/dL (32-36); Mean Platelet Volume 9.6 fL (7.5-11.0); Monocyte (Absolute #) 0.53 x10^3/uL (0.0-1.3); Monocytes % 5.9 % (0.0-12.0); Platelet Count 191 x10^3/uL (150-450); Red Blood Count 4.31 x10^6/uL (4.1-5.4); Red Cell Distribution Width 12.6 % (11.5-14.0)
[2023-04-15 23:02] LABS: ANION GAP 8.3 MEQ/L (5-15); BILIRUBIN,TOTAL 0.5 mg/dL (0.2-1.3); Calcium 9.2 mg/dL (8.4-10.2); Creatinine 1 1.3 mg/dL (0.52-1.04); Potassium 4.1 mmol/L (3.5-5.1); Total Protein 7.2 g/dL (6.3-8.2)
[2023-04-16 01:12] VITALS: RESP 18
[2023-04-16] MEDS ORDERED: TORAdol 30 mg Injection ONE (02:57)
[2023-04-16] MEDS: TORAdol 30 mg Injection IM ONE (03:00)
[2023-04-16 03:09] VITALS: BP 111/87; PULSE 85; O2SAT 93
--- NOTE | 2023-04-16 08:19 | XRAY ---
CLINICAL HISTORY: evaluate shunt TECHNIQUE: X-ray of right lower chest and RUQ AP View. COMPARISON: None. FINDINGS: Abdominal end of TENTER FRAME BACK TENDER shunt shows coiling in right lumber region. Distal tip is directed to lateral side of abdomen projecting over ascending colon. No kinking noted. Visualized colon is loaded with fecal matter. IMPRESSION: Abdominal part of TENTER FRAME BACK TENDER shunt shows coiling but no kinking noted. Tip is noted projecting over ascending colon. Electronically Signed by: Jan Webb MD. (04/15/2023 23:44:38 EST)
--- NOTE | 2023-04-16 08:52 | XRAY ---
CLINICAL HISTORY: evaluate shunt TECHNIQUE: X-ray chest AP and lateral views. COMPARISON: None FINDINGS: The chest appears unremarkable. TELEMETRY NURSE shunt is noted passing over right janet chest. Normal bending of shunt in neck above clavicle. IMPRESSION: Normal bending of the shunt in the neck above clavicle. Electronically Signed by: Jan Webb MD. (04/15/2023 23:46:20 EST)
--- NOTE | 2023-04-16 08:52 | XRAY ---
CLINICAL HISTORY: headache/pressure TECHNIQUE: Axial non-contrast CT scan of the brain was performed from the skull base to the high parietal region was performed without contrast. COMPARISON: 01/12/2023. FINDINGS: Right frontal ventricular shunt tube with its tip reaching the frontal horn of the right lateral ventricle. A related right frontal subcortical patchy hypodense area is noted, possibly gliosis. Normal size and configuration of the cerebral ventricles. No hydrocephalic changes. Left basal ganglia hypodense foci of near CSF-like density, possibly prominent Virchow Renard spaces. The rest of the visualized brain parenchyma shows a normal appearance. No focal parenchymal abnormalities are demonstrated. Howell-white matter differentiation is maintained. Normal CT appearance of the posterior fossa structures namely the cerebellar hemispheres, brainstem, and cerebellar peduncles. No intracerebral or extra axial hematoma. No midline shifts or deformity. Prominent left fronto-temporal and Sylvian fissure extra-axial CSF spaces. No definite calvarial fractures. The osseous structures in the skull base are unremarkable. Prominent occipital protuberance. Scanned paranasal sinuses are unremarkable. IMPRESSION: Follow-up study showing stationary course with no hydrocephalus, intra or extra-axial hematomas or parenchymal territorial hypodense areas suggestive of acute ischemic insult. Electronically Signed by: Jan Webb MD. (04/15/2023 23:41:08 EST)
--- NOTE | 2023-04-16 08:53 | XRAY ---
CLINICAL HISTORY: evaluate shunt TECHNIQUE: X-ray of the skull was performed in (PA and lateral projection). COMPARISON: None. FINDINGS: Satisfactory position of the right ventriculoperitoneal shunt with its proximal tip projecting over the skull to the right of midline. No fracture or other significant abnormality is seen. The calvarias and skull base are normal. Visualized soft tissues appear unremarkable. IMPRESSION: Satisfactory position of the right ventriculoperitoneal shunt with its proximal tip projecting over the skull to the right of midline. DISCLAIMER:A subtle bone abnormality or fracture may not be readily apparent on x-rays, thus clinical correlation and further imaging including follow up CT, MRI, or follow up x-rays are advised as needed. Electronically Signed by: Jan Webb MD. (04/15/2023 23:48:14 EST)
--- NOTE | 2023-04-16 08:55 | XRAY ---
CLINICAL HISTORY: evaluate shunt TECHNIQUE: X-rays of the cervical spine (AP and lateral views) were performed. COMPARISON: None. FINDINGS: Suboptimal radiograph due to poor positioning. The proximal end of the ventriculoperitoneal shunt is projecting over the skull on the right side, distally traversing in the subcutaneous soft tissues along the right lateral neck. No fracture or subluxation is seen. No spondylolisthesis was visualized. Anterior spinal, posterior spinal, and spinolaminar lines are intact. Normal vertebral body heights and intervertebral disc spaces. Normal prevertebral soft tissues. The paraspinal soft tissues are grossly within normal limits. IMPRESSION: The proximal end of the ventriculoperitoneal shunt is projecting over the skull on the right side, distally traversing in the subcutaneous soft tissues along the right lateral neck. DISCLAIMER:A subtle bone abnormality or fracture may not be readily apparent on x-rays, thus clinical correlation and further imaging including follow-up CT, MRI, or follow-up x-rays are advised as needed. Electronically Signed by: Jan Webb MD. (04/15/2023 23:42:47 EST)
== END 2023-04-16 03:15 | disposition home or self-care (01) ==
LOC: ED 21:21
DX: R51.9 Headache, unspecified (principal); G91.9 Hydrocephalus, unspecified; Z98.2 Presence of cerebrospinal fluid drainage device; I11.0 Hypertensive heart disease with heart failure; I50.9 Heart failure, unspecified; E11.9 Type 2 diabetes mellitus without complications; Z79.4 Long term (current) use of insulin; Z79.899 Other long term (current) drug therapy; Z28.310 Unvaccinated for COVID-19; Z72.0 Tobacco use
CPT/HCPCS: 36415; 70250; 70450; 71046; 72040; 74021; 80053; 85025; 87040; 96372; 99284; J1885

== ENCOUNTER 2024-05-26 09:45 | Emergency (ER) | payer MEDICARE ==
[2024-05-26 10:00] VITALS: PULSE 107; TEMP 96.2
[2024-05-26 10:19] VITALS: BP 138/95
[2024-05-26 10:21] VITALS: O2SAT 95
--- NOTE | 2024-05-26 10:21 | ERPHSYRPT ---
- History of Present Illness Time Seen by Provider: 05/26/24 10:06 Source: patient, family Exam Limitations: no limitations Patient Subjective Stated Complaint: pt has the back of an earing stuck in her ear piercing on the right ear Triage Nursing Assessment: Pt brought to the ER by her mother, hypertensive, rates pain as 3/10, pulses normal, skin n/w/d, denies any other issues Physician History: 44-year-old female not up-to-date with tetanus presented in the ER with metal earring stopper stuck in the back of right ear piercing since yesterday. Patient reports overnight has increased swelling and pain. No fever. Diffuse swelling of the right ear lobule with visible metal piece stuck in the back of ear piercing. Thoroughly cleaned and discussed the procedure with the patient and foreign body/earring stopper is removed intact. Patient has some swelling and erythema, given Keflex for next 5 days to avoid infection. Offered tetanus which she declined. Discussed signs symptoms of worsening needing return to ER which she seemed understanding. Stable for discharge. Allergies/Adverse Reactions: morphine Allergy (Verified 05/26/24 09:59) Home Medications: ALPRAZolam 1 MG [Xanax 1 mg] 1 mg PO DAILY 09/23/22 [History] Buspirone HCl 15 mg PO BID 09/23/22 [History] Escitalopram Oxalate [Lexapro] 10 mg PO DAILY 09/23/22 [History] Quetiapine Fumarate 100 mg [Seroquel 100 MG] 150 mg PO HS 09/23/22 [History] Trazodone HCl 100 mg PO HS 09/23/22 [History] Gabapentin 600 mg PO TID 11/15/22 [History] Insulin Detemir [Levemir Flexpen] 58 units SQ DAILY 11/15/22 [History] Hx Tetanus, Diphtheria Vaccination/Date Given: No Hx Influenza Vaccination/Date Given: Yes Hx Pneumococcal Vaccination/Date Given: Yes Travel Risk - International Travel Have you traveled outside of the country in past 3 weeks: No - Emerging Infectious Disease Are you exhibiting symptoms associated with any current EIDs: No - Review of Systems Constitutional: No Symptoms Eyes: No Symptoms Ears, Nose, & Throat: Ear Pain Respiratory: No Symptoms Cardiac: No Symptoms Abdominal/Gastrointestinal: No Symptoms Skin: Skin Lesions Neurological: No Symptoms - Past Medical History Pertinent Past Medical History: Yes Neurological History: Migraines, Seizures, Stroke Cardiac History: Congestive Heart Failure, Hypertension Respiratory History: Asthma, Bronchitis, CHF, COPD, Sleep Apnea Endocrine Medical History: Diabetes Type II Musculoskeletal History: Arthritis GI Medical History: GERD, Gallbladder Disease Psycho-Social History: Depression Female Reproductive Disorders: Endometriosis, Menstrual Problems - Past Surgical History Past Surgical History: Yes Neuro Surgical History: Brain Shunt Respiratory: No Pertinent History Gastrointestinal: Appendectomy, Cholecystectomy Genitourinary: Other Female Surgical History: Hysterectomy Other Surgical History: correction of toes on bilateral feet, bladder sling, 3 sinus surgeries, colonoscopy, hemroidectomy, [employer] shunt in head - Female History Hx Now: No - Social History Smoking Status: Current every day smoker How long have you smoked: 25 yrs Exposure to second hand smoke: Yes Drug Use: none - Social Determinants of Health Will the patient participate in the screening: Yes Do you worry about a steady place to live?: No Do you have any problems with any of the following?: No known problems In the past 12 months,have you had to go without utilities?: No Transportation Issues: No Has anyone in your support network made you feel unsafe?: No Have you or anyone in your house had to go w/o enough food: No - Nursing Vital Signs Nursing Vital Signs: Initial Vital Signs Temperature 96.2 F 05/26/24 09:52 Pulse Rate 107 H 05/26/24 09:52 Blood Pressure 166/155 05/26/24 09:52 O2 Sat by Pulse Oximetry 95 05/26/24 09:52 Pain Scale Pain Intensity 3 - Physical Exam General Appearance: no apparent distress Eye Exam: bilateral eye: normal inspection, PERRL Ear Exam: right ear: other (Swollen ear lobule), left ear: auricle normal, bilateral ear: canal normal, TM normal Nasal Exam: normal inspection Throat Exam: normal, pharynx normal Neck Exam: normal inspection, non-tender, full range of motion Cardiovascular/Respiratory Exam: normal breath sounds, regular rate/rhythm Neurologic Exam: alert, oriented x 3, cooperative, movie editor II-XII nml as tested SpO2 Interpretation: normal SpO2: 95 O2 Delivery: Room Air Procedures - Additional Procedures Progress: Time 1010: Location right ear lobule Metal foreign body stuck in the back of ear piercing Cleaned with Betadine Foreign body removed with a forcep. No complication. Dressing applied - Progress Progress: improved Progress Note: 05/26/24 10:19 44-year-old female not up-to-date with tetanus presented in the ER with metal earring stopper stuck in the back of right ear piercing since yesterday. Patient reports overnight has increased swelling and pain. No fever. Diffuse swelling of the right ear lobule with visible metal piece stuck in the back of ear piercing. Thoroughly cleaned and discussed the procedure with the patient and foreign body/earring stopper is removed intact. Patient has some swelling and erythema, given Keflex for next 5 days to avoid infection. Offered tetanus which she declined. Discussed signs symptoms of worsening needing return to ER which she seemed understanding. Stable for discharge. Counseled pt/family regarding: diagnosis, need for follow-up Medical Desision Making - Diagnostic Testing Diagnostic test were ordered, analyzed, and reviewed by me: No - Risk of complications The pt has a mod risk of morbidity or mortality based on: Need for prescription drug management, Need for minor surgical intervention in patient with know risk factors - Departure Departure Disposition: Home Clinical Impression: Foreign body of right ear lobe Condition: Stable Critical Care Time: No Referrals: KYLE FRANKLIN NP [Primary Care Provider] - Follow up with PCP 1 day Instructions: Removal of Foreign Body in Skin Additional Instructions: Take Tylenol/ibuprofen as needed. Follow-up with primary care for reevaluation. Return to ER for increasing pain swelling redness discharge or if develop fever or chills. Prescriptions: Cephalexin Mh 500 mg [Keflex 500 mg] 500 mg PO TID #15 cap
== END 2024-05-26 10:25 | disposition home or self-care (01) ==
LOC: ED 09:45
DX: S00.451A Superficial foreign body of right ear, initial encounter (principal); I11.0 Hypertensive heart disease with heart failure; I50.9 Heart failure, unspecified; E11.9 Type 2 diabetes mellitus without complications; Z79.4 Long term (current) use of insulin; Z79.899 Other long term (current) drug therapy; Z72.0 Tobacco use
CPT/HCPCS: 99281; 99282

== ENCOUNTER 2024-09-18 23:55 | Emergency (ER) | payer MEDICARE ==
[2024-09-19 00:09] VITALS: TEMP 98.8
[2024-09-19] MEDS ORDERED: DELTASONE 20 MG ONE (00:59)
[2024-09-19] MEDS ORDERED: Nubain 10 MG/ML ONE (00:59)
[2024-09-19] MEDS ORDERED: Ativan 1 MG ONE (00:59)
[2024-09-19] MEDS: Nubain 10 MG/ML IM ONE (01:00)
[2024-09-19] MEDS: DELTASONE 20 MG PO ONE (01:02)
[2024-09-19] MEDS: Ativan 1 MG PO ONE (01:02)
--- NOTE | 2024-09-19 01:11 | ERPHSYRPT ---
- History of Present Illness Source: patient Exam Limitations: no limitations Patient Subjective Stated Complaint: c/o back pain Triage Nursing Assessment: patient brought to ED by mother with c/o lower back back that radiates into her leips and down both legs. patient states that she can only describes it as she feels like she is getting shocked. patient rates pain 10/10, hypertensive, diaphoretic, brought in by [facility]. Physician History: Patient was sitting down not doing much. She developed some acute back pain. It started to radiate down her legs. She said it was like a sharp and stabbing pain. She is not moving or doing anything when this happened. She is never had problems like this before. What she is describing sounds like radicular symptoms. She does not have any bowel or bladder dysfunction or saddle pares thesias or acute cord symptoms. Movement makes the symptoms worse nothing makes it better. She is pretty uncomfortable at this time.She was in quite a bit of pain. She rated it as a 10 out of 10.She has never had problems like this before. Method of Injury: unknown Allergies/Adverse Reactions: morphine Allergy (Verified 09/19/24 00:09) Difficulty Breathing Home Medications: ALPRAZolam 1 MG [Xanax 1 mg] 1 mg PO DAILY 09/23/22 [History] Buspirone HCl 15 mg PO BID 09/23/22 [History] Escitalopram Oxalate [Lexapro] 10 mg PO DAILY 09/23/22 [History] Quetiapine Fumarate 100 mg [Seroquel 100 MG] 150 mg PO HS 09/23/22 [History] Trazodone HCl 100 mg PO HS 09/23/22 [History] Gabapentin 600 mg PO TID 11/15/22 [History] Insulin Detemir [Levemir Flexpen] 58 units SQ DAILY 11/15/22 [History] Hx Tetanus, Diphtheria Vaccination/Date Given: No Hx Influenza Vaccination/Date Given: Yes Hx Pneumococcal Vaccination/Date Given: Yes Travel Risk - International Travel Have you traveled outside of the country in past 3 weeks: No - Emerging Infectious Disease Are you exhibiting symptoms associated with any current EIDs: No - Review of Systems Constitutional: No Symptoms Eyes: No Symptoms Ears, Nose, & Throat: No Symptoms Respiratory: No Symptoms Musculoskeletal: Back Pain - Past Medical History Pertinent Past Medical History: Yes Neurological History: Migraines, Seizures, Stroke Cardiac History: Congestive Heart Failure, Hypertension Respiratory History: Asthma, Bronchitis, CHF, COPD, Sleep Apnea Endocrine Medical History: Diabetes Type II Musculoskeletal History: Arthritis GI Medical History: GERD, Gallbladder Disease Psycho-Social History: Depression Female Reproductive Disorders: Endometriosis, Menstrual Problems - Past Surgical History Past Surgical History: Yes Neuro Surgical History: Brain Shunt Respiratory: No Pertinent History Gastrointestinal: Appendectomy, Cholecystectomy Genitourinary: Other Female Surgical History: Hysterectomy Other Surgical History: correction of toes on bilateral feet, bladder sling, 3 sinus surgeries, colonoscopy, hemroidectomy, [employer] shunt in head - Female History Hx Last Menstrual Period: total hysterectomy Hx Now: No - Social History Smoking Status: Current every day smoker How long have you smoked: 25 yrs Exposure to second hand smoke: Yes Drug Use: none - Social Determinants of Health Will the patient participate in the screening: Yes Do you worry about a steady place to live?: No Do you have any problems with any of the following?: No known problems In the past 12 months,have you had to go without utilities?: No Transportation Issues: No Has anyone in your support network made you feel unsafe?: No Have you or anyone in your house had to go w/o enough food: No - Nursing Vital Signs Nursing Vital Signs: Initial Vital Signs Temperature 98.8 F 09/18/24 23:59 Pulse Rate 128 H 09/18/24 23:59 Respiratory Rate 22 09/18/24 23:59 Blood Pressure 168/122 09/18/24 23:59 O2 Sat by Pulse Oximetry 96 09/18/24 23:59 Pain Scale Pain Intensity [Lower 10 Posterior Back] Pain Intensity 7 - Physical Exam General Appearance: no apparent distress Eye Exam: PERRL/EOMI Neck Exam: normal inspection Respiratory Exam: normal breath sounds, lungs clear, No respiratory distress Cardiovascular Exam: regular rate/rhythm Gastrointestinal Exam: soft Back Exam: other (Exam was limited at first by the patient's pain.) SpO2: 96 - Course Nursing assessment & vital signs reviewed: Yes Ordered Tests: Active Orders 24 hr Category Date Time Status ABDOMEN AND PELVIS W/0 CONTRAS [CT] Stat Exams 09/19/24 02:05 Completed POCT GLUCOSE Stat Lab 09/19/24 00:48 Completed UA W/RFX UR CULTURE Stat Lab 09/19/24 02:27 Completed Medication Summary Discontinued Medications Generic Name Dose Route Start Last Admin Trade Name [place] PRDo Reason Stop Dose Admin Ketorolac Tromethamine 30 mg 09/19/24 02:17 09/19/24 02:26 Ketorolac Tromethamine 30 Mg/Ml Inj IM 09/19/24 02:18 30 mg STAT ONE Administration Ketorolac Tromethamine Confirm 09/19/24 02:18 Ketorolac Tromethamine 30 Mg/Ml Inj Administered 09/19/24 02:19 Dose 30 mg .ROUTE .STK-MED ONE Lorazepam 1 mg 09/19/24 00:57 09/19/24 01:02 Lorazepam 1 Mg Tablet PO 09/19/24 00:58 1 mg STAT ONE Administration Lorazepam Confirm 09/19/24 00:59 Lorazepam 1 Mg Tablet Administered 09/19/24 01:00 Dose 1 mg .ROUTE .STK-MED ONE Nalbuphine HCl 10 mg 09/19/24 00:56 09/19/24 01:00 Nalbuphine Hcl 10 Mg/Ml Ampul IM 09/19/24 00:57 10 mg STAT ONE Administration Nalbuphine HCl Confirm 09/19/24 00:59 Nalbuphine Hcl 10 Mg/Ml Ampul Administered 09/19/24 01:00 Dose 10 mg .ROUTE .STK-MED ONE Prednisone 20 mg 09/19/24 00:56 09/19/24 01:02 Prednisone 20 Mg Tablet PO 09/19/24 00:57 20 mg STAT ONE Administration Prednisone Confirm 09/19/24 00:59 Prednisone 20 Mg Tablet Administered 09/19/24 01:00 Dose 20 mg .ROUTE .STK-MED ONE Lab/Rad Data: Laboratory Results 09/19/24 09/19/24 Range/Units 02:27 00:48 POC Glucometer 94 (74 to 106) mg/dL Urine Color Yellow (Yellow) Urine Appearance Clear (Clear) Urine pH 5.5 (4.6-8.0) Ur Specific [place] 1.010 (1.005-1.030) Urine Protein Negative (Negative) Urine Glucose (UA) >=1000 A (Negative) mg/dL Urine Ketones Negative (Negative) Urine Blood Negative (Negative) Urine Nitrite Negative (Negative) Urine Bilirubin Negative (Negative) Urine Urobilinogen 0.2 (0.2) mg/dL Ur Leukocyte Esterase Trace A (Negative) U Hyaline Cast (Auto) NONE SEEN (0-2) /LPF Urine Microscopic RBC 0-2 (0-5) /HPF Urine Microscopic WBC 6-10 A (0-5) /HPF Ur Epithelial Cells Rare (None Seen) /HPF Urine Bacteria None Seen (None Seen) /HPF Urine Culture Reflexed NO (NO) - Progress Progress: unchanged Progress Note: Because of the acuity wondered if it might be a kidney stone. It sounds a little bit more radicular. The patient is not doing a really good job describing the pain. She was little uncomfortable in the bed to so she kind of had that kidney stone appearance. 1 to go ahead and get a urinalysis on her. In the meantime I gave her some Nubain as well as some Ativan p.o.There is low concern for a kidney stone. I got a CT it was negative. Her UA was negative. I think it is musculoskeletal back pain. Her pain is improved dramatically. I will give her some prednisone and [place] to go home with. 09/19/24 01:11 09/19/24 04:16 - Departure Departure Disposition: Home Clinical Impression: Back pain Condition: Stable Critical Care Time: No Referrals: KYLE FRANKLIN NP [Primary Care Provider, UNKNOWN] - Follow up/PCP as directed Instructions: Low Back Pain (DC)
[2024-09-19] MEDS ORDERED: TORAdol 30 mg Injection ONE (02:18)
[2024-09-19] MEDS: TORAdol 30 mg Injection IM ONE (02:26)
[2024-09-19 02:38] LABS: Glucose, Urine >=1000 mg/dL (Negative); Protein,Urine Dip Negative (Negative); RBC 0-2 /HPF (0-5)
--- NOTE | 2024-09-19 03:10 | XRAY ---
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 TECHNIQUE: Contiguous axial images were obtained from the level of the diaphragm to the pubic symphysis without intravenous or oral contrast. Coronal and sagittal reconstructions were likewise performed and indicated to increase the sensitivity for detecting clinically relevant pathology. CT scan was performed according to ALARA (as low as reasonable achievable). FINDINGS: The visualized lung bases are clear. Evaluation of the abdominal and pelvic visceral organs is limited without intravenous contrast. The unenhanced liver is enlarged in size and measures 20cm in cranio-caudal dimension. The spleen is mildly enlarged and measures 14cm in size. The pancreas, and adrenal glands are grossly unremarkable. The gallbladder is not seen. Surgical pauline are seen in gall bladder fossa. The kidneys are normal in size and attenuation without obvious calcification. There is no hydronephrosis or perinephric stranding. The ureters are normal in caliber. No adenopathy or fluid collections are seen. No evidence of focal or diffuse bowel wall thickening or evidence of bowel obstruction is seen. The appendix is visualized in the right lower quadrant and appears within normal limits. STORAGE ARCHITECT shunt tube is seen in situ with its distal tip in the abdominal cavity. The aorta is normal in caliber. The urinary bladder is normal in contour. Pelvic viscera are grossly unremarkable. No aggressive appearing osseous lesions are identified. IMPRESSION: 1. Mild hepatosplenomegaly. 2. STORAGE ARCHITECT shunt tube in situ. Electronically Signed by: Gonzalo Llanos MD. (09/19/2024 03:08:49 EDT)
[2024-09-19 03:20] VITALS: RESP 18
[2024-09-19 04:07] VITALS: BP 106/84; PULSE 95
[2024-09-19 04:17] VITALS: O2SAT 96
== END 2024-09-19 04:27 | disposition home or self-care (01) ==
LOC: ED 23:55
DX: M54.50 Low back pain, unspecified (principal); I10 Essential (primary) hypertension; E11.9 Type 2 diabetes mellitus without complications; Z79.891 Long term (current) use of opiate analgesic; Z79.52 Long term (current) use of systemic steroids; Z79.4 Long term (current) use of insulin; Z79.899 Other long term (current) drug therapy; Z72.0 Tobacco use